=== PATIENT | male | born 1955 | race Caucasian/White ===

== ENCOUNTER → 2017-01-24 | Outpatient (CLI) | payer BC ==
[~2017-01-24] MED LIST: ACTOS30 MG PO; ALLOPURINOL300 MG PO; ASPIR 8181 MG PO; CINNAMON500 MG PO; CLOTRIMAZOLE/BETAMETHASONE 45 GM CR TP ONE; COQ-10100 MG PO; ESIDRIX25 MG PO; IRON PO; OMEGA OIL PO; RAMIPRIL5 MG PO; TESTOSTERONE; UROXATRAL10 MG PO; ZETIA10 MG PO
== END ==
LOC: WCC 11:59
PROVIDERS: ATTEND Podiatrist Foot & Ankle Surgery
DX: E11.65 Type 2 diabetes mellitus with hyperglycemia (principal); E11.621 Type 2 diabetes mellitus with foot ulcer; B37.2 Candidiasis of skin and nail; L97.522 Non-pressure chronic ulcer of other part of left foot with fat layer exposed; L97.521 Non-pressure chronic ulcer of other part of left foot limited to breakdown of skin; L97.512 Non-pressure chronic ulcer of other part of right foot with fat layer exposed; L97.511 Non-pressure chronic ulcer of other part of right foot limited to breakdown of skin; L97.519 Non-pressure chronic ulcer of other part of right foot with unspecified severity; B35.1 Tinea unguium; I89.0 Lymphedema, not elsewhere classified; I87.2 Venous insufficiency (chronic) (peripheral); L84 Corns and callosities; M10.9 Gout, unspecified; B96.5 Pseudomonas (aeruginosa) (mallei) (pseudomallei) as the cause of diseases classified elsewhere; B96.89 Other specified bacterial agents as the cause of diseases classified elsewhere; I10 Essential (primary) hypertension; E66.01 Morbid (severe) obesity due to excess calories; Z01.810 Encounter for preprocedural cardiovascular examination; Z01.811 Encounter for preprocedural respiratory examination
CPT/HCPCS: 36415; 82948

== ENCOUNTER → 2017-02-07 | Outpatient (CLI) | payer BC ==
[~2017-02-07] MED LIST changes: +LIDOCAINE VISC 2% SOLN 15 ML UDC ONE
== END ==
LOC: WCC 11:34
PROVIDERS: ATTEND Podiatrist Foot & Ankle Surgery
DX: E11.621 Type 2 diabetes mellitus with foot ulcer (principal); E11.65 Type 2 diabetes mellitus with hyperglycemia; B37.2 Candidiasis of skin and nail; L97.522 Non-pressure chronic ulcer of other part of left foot with fat layer exposed; L97.521 Non-pressure chronic ulcer of other part of left foot limited to breakdown of skin; L97.512 Non-pressure chronic ulcer of other part of right foot with fat layer exposed; L97.511 Non-pressure chronic ulcer of other part of right foot limited to breakdown of skin; L97.519 Non-pressure chronic ulcer of other part of right foot with unspecified severity; B35.1 Tinea unguium; I87.2 Venous insufficiency (chronic) (peripheral); I89.0 Lymphedema, not elsewhere classified; L84 Corns and callosities; M10.9 Gout, unspecified; B96.5 Pseudomonas (aeruginosa) (mallei) (pseudomallei) as the cause of diseases classified elsewhere; B96.89 Other specified bacterial agents as the cause of diseases classified elsewhere; I10 Essential (primary) hypertension; E66.01 Morbid (severe) obesity due to excess calories; Z01.810 Encounter for preprocedural cardiovascular examination; Z01.811 Encounter for preprocedural respiratory examination
CPT/HCPCS: 93971

== ENCOUNTER → 2017-02-21 | Outpatient (CLI) | payer BC ==
[~2017-02-21] MED LIST changes: -CLOTRIMAZOLE/BETAMETHASONE 45 GM CR TP ONE; -LIDOCAINE VISC 2% SOLN 15 ML UDC ONE
== END ==
LOC: WCC 11:52
PROVIDERS: ATTEND Podiatrist Foot & Ankle Surgery
DX: E11.65 Type 2 diabetes mellitus with hyperglycemia (principal); E11.621 Type 2 diabetes mellitus with foot ulcer; B37.2 Candidiasis of skin and nail; L97.512 Non-pressure chronic ulcer of other part of right foot with fat layer exposed; B35.1 Tinea unguium; B96.5 Pseudomonas (aeruginosa) (mallei) (pseudomallei) as the cause of diseases classified elsewhere; B96.89 Other specified bacterial agents as the cause of diseases classified elsewhere; L97.511 Non-pressure chronic ulcer of other part of right foot limited to breakdown of skin; L97.519 Non-pressure chronic ulcer of other part of right foot with unspecified severity; L97.521 Non-pressure chronic ulcer of other part of left foot limited to breakdown of skin; L97.522 Non-pressure chronic ulcer of other part of left foot with fat layer exposed; E66.01 Morbid (severe) obesity due to excess calories; I10 Essential (primary) hypertension; I87.2 Venous insufficiency (chronic) (peripheral); I87.311 Chronic venous hypertension (idiopathic) with ulcer of right lower extremity; L97.811 Non-pressure chronic ulcer of other part of right lower leg limited to breakdown of skin; I89.0 Lymphedema, not elsewhere classified; L84 Corns and callosities; M10.9 Gout, unspecified; M79.662 Pain in left lower leg; Z01.810 Encounter for preprocedural cardiovascular examination; Z01.811 Encounter for preprocedural respiratory examination

== ENCOUNTER → 2017-03-14 | Outpatient (CLI) | payer BC | LOC: WCC 12:22 | PROVIDERS: ATTEND Podiatrist Foot & Ankle Surgery | DX: E11.65 Type 2 diabetes mellitus with hyperglycemia (principal); E11.621 Type 2 diabetes mellitus with foot ulcer; L97.522 Non-pressure chronic ulcer of other part of left foot with fat layer exposed; L97.521 Non-pressure chronic ulcer of other part of left foot limited to breakdown of skin; L97.811 Non-pressure chronic ulcer of other part of right lower leg limited to breakdown of skin; L97.512 Non-pressure chronic ulcer of other part of right foot with fat layer exposed; L97.511 Non-pressure chronic ulcer of other part of right foot limited to breakdown of skin; L97.519 Non-pressure chronic ulcer of other part of right foot with unspecified severity; I87.311 Chronic venous hypertension (idiopathic) with ulcer of right lower extremity; I89.0 Lymphedema, not elsewhere classified; I87.2 Venous insufficiency (chronic) (peripheral); B37.2 Candidiasis of skin and nail; M79.662 Pain in left lower leg; B35.1 Tinea unguium; M10.9 Gout, unspecified; L84 Corns and callosities; B96.5 Pseudomonas (aeruginosa) (mallei) (pseudomallei) as the cause of diseases classified elsewhere; B96.89 Other specified bacterial agents as the cause of diseases classified elsewhere; I10 Essential (primary) hypertension; E66.01 Morbid (severe) obesity due to excess calories; Z01.810 Encounter for preprocedural cardiovascular examination; Z01.811 Encounter for preprocedural respiratory examination | CPT/HCPCS: 87071; 87075; 87186; 87205 ==

== ENCOUNTER → 2017-03-21 | Outpatient (CLI) | payer BC | LOC: WCC 11:43 | PROVIDERS: ATTEND Podiatrist Foot & Ankle Surgery | DX: E11.621 Type 2 diabetes mellitus with foot ulcer (principal); E11.65 Type 2 diabetes mellitus with hyperglycemia; L97.522 Non-pressure chronic ulcer of other part of left foot with fat layer exposed; L97.521 Non-pressure chronic ulcer of other part of left foot limited to breakdown of skin; L97.811 Non-pressure chronic ulcer of other part of right lower leg limited to breakdown of skin; L97.512 Non-pressure chronic ulcer of other part of right foot with fat layer exposed; L97.511 Non-pressure chronic ulcer of other part of right foot limited to breakdown of skin; L97.519 Non-pressure chronic ulcer of other part of right foot with unspecified severity; I87.311 Chronic venous hypertension (idiopathic) with ulcer of right lower extremity; I89.0 Lymphedema, not elsewhere classified; I87.2 Venous insufficiency (chronic) (peripheral); M10.9 Gout, unspecified; L84 Corns and callosities; B35.1 Tinea unguium; B95.7 Other staphylococcus as the cause of diseases classified elsewhere; B96.89 Other specified bacterial agents as the cause of diseases classified elsewhere; B96.5 Pseudomonas (aeruginosa) (mallei) (pseudomallei) as the cause of diseases classified elsewhere; I10 Essential (primary) hypertension; E66.01 Morbid (severe) obesity due to excess calories; Z01.810 Encounter for preprocedural cardiovascular examination; Z01.811 Encounter for preprocedural respiratory examination ==

== ENCOUNTER → 2017-03-28 | Outpatient (CLI) | payer BC ==
[~2017-03-28] MED LIST changes: +CLOTRIMAZOLE/BETAMETHASONE 45 GM CR TP ONE; +LIDOCAINE VISC 2% SOLN 15 ML UDC ONE
== END ==
LOC: WCC 12:22
PROVIDERS: ATTEND Podiatrist Foot & Ankle Surgery
DX: E11.621 Type 2 diabetes mellitus with foot ulcer (principal); E11.65 Type 2 diabetes mellitus with hyperglycemia; B95.7 Other staphylococcus as the cause of diseases classified elsewhere; B96.89 Other specified bacterial agents as the cause of diseases classified elsewhere; L97.512 Non-pressure chronic ulcer of other part of right foot with fat layer exposed; B35.1 Tinea unguium; B96.5 Pseudomonas (aeruginosa) (mallei) (pseudomallei) as the cause of diseases classified elsewhere; L97.511 Non-pressure chronic ulcer of other part of right foot limited to breakdown of skin; L97.519 Non-pressure chronic ulcer of other part of right foot with unspecified severity; L97.522 Non-pressure chronic ulcer of other part of left foot with fat layer exposed; E66.01 Morbid (severe) obesity due to excess calories; I10 Essential (primary) hypertension; I87.2 Venous insufficiency (chronic) (peripheral); I89.0 Lymphedema, not elsewhere classified; L84 Corns and callosities; M10.9 Gout, unspecified; Z01.810 Encounter for preprocedural cardiovascular examination; Z01.811 Encounter for preprocedural respiratory examination

== ENCOUNTER → 2017-04-04 | Outpatient (CLI) | payer BC ==
[~2017-04-04] MED LIST changes: -CLOTRIMAZOLE/BETAMETHASONE 45 GM CR TP ONE
== END ==
LOC: EDSTATUS 11:57 → WCC 11:59
PROVIDERS: ATTEND Podiatrist Foot & Ankle Surgery
DX: E11.65 Type 2 diabetes mellitus with hyperglycemia (principal); E11.621 Type 2 diabetes mellitus with foot ulcer; L97.522 Non-pressure chronic ulcer of other part of left foot with fat layer exposed; L97.512 Non-pressure chronic ulcer of other part of right foot with fat layer exposed; L97.511 Non-pressure chronic ulcer of other part of right foot limited to breakdown of skin; L97.519 Non-pressure chronic ulcer of other part of right foot with unspecified severity; I89.0 Lymphedema, not elsewhere classified; I87.2 Venous insufficiency (chronic) (peripheral); M10.9 Gout, unspecified; B35.1 Tinea unguium; L84 Corns and callosities; B95.7 Other staphylococcus as the cause of diseases classified elsewhere; B96.5 Pseudomonas (aeruginosa) (mallei) (pseudomallei) as the cause of diseases classified elsewhere; B96.89 Other specified bacterial agents as the cause of diseases classified elsewhere; I10 Essential (primary) hypertension; E66.01 Morbid (severe) obesity due to excess calories; Z01.810 Encounter for preprocedural cardiovascular examination; Z01.811 Encounter for preprocedural respiratory examination
CPT/HCPCS: 15275; 99213; Q4131

== ENCOUNTER → 2017-04-11 | Outpatient (CLI) | payer BC ==
[~2017-04-11] MED LIST changes: -LIDOCAINE VISC 2% SOLN 15 ML UDC ONE
== END ==
LOC: WCC 12:24
PROVIDERS: ATTEND Podiatrist Foot & Ankle Surgery
DX: E11.621 Type 2 diabetes mellitus with foot ulcer (principal); E11.65 Type 2 diabetes mellitus with hyperglycemia; L97.522 Non-pressure chronic ulcer of other part of left foot with fat layer exposed; L97.512 Non-pressure chronic ulcer of other part of right foot with fat layer exposed; L97.511 Non-pressure chronic ulcer of other part of right foot limited to breakdown of skin; L97.519 Non-pressure chronic ulcer of other part of right foot with unspecified severity; I89.0 Lymphedema, not elsewhere classified; I87.2 Venous insufficiency (chronic) (peripheral); B35.1 Tinea unguium; M10.9 Gout, unspecified; L84 Corns and callosities; I10 Essential (primary) hypertension; B96.5 Pseudomonas (aeruginosa) (mallei) (pseudomallei) as the cause of diseases classified elsewhere; B96.89 Other specified bacterial agents as the cause of diseases classified elsewhere; E66.01 Morbid (severe) obesity due to excess calories; Z01.810 Encounter for preprocedural cardiovascular examination; Z01.811 Encounter for preprocedural respiratory examination

== ENCOUNTER → 2017-04-18 | Outpatient (CLI) | payer BC | LOC: WCC 12:00 | PROVIDERS: ATTEND Podiatrist Foot & Ankle Surgery | DX: E11.621 Type 2 diabetes mellitus with foot ulcer (principal); E11.65 Type 2 diabetes mellitus with hyperglycemia; L97.522 Non-pressure chronic ulcer of other part of left foot with fat layer exposed; L97.512 Non-pressure chronic ulcer of other part of right foot with fat layer exposed; L97.511 Non-pressure chronic ulcer of other part of right foot limited to breakdown of skin; L97.519 Non-pressure chronic ulcer of other part of right foot with unspecified severity; B35.1 Tinea unguium; I89.0 Lymphedema, not elsewhere classified; B96.5 Pseudomonas (aeruginosa) (mallei) (pseudomallei) as the cause of diseases classified elsewhere; B96.89 Other specified bacterial agents as the cause of diseases classified elsewhere; I10 Essential (primary) hypertension; I87.2 Venous insufficiency (chronic) (peripheral); E66.01 Morbid (severe) obesity due to excess calories; E78.00 Pure hypercholesterolemia, unspecified; L84 Corns and callosities; M10.9 Gout, unspecified; Z01.810 Encounter for preprocedural cardiovascular examination; Z01.811 Encounter for preprocedural respiratory examination | CPT/HCPCS: 15275; 99213; Q4131 ==

== ENCOUNTER → 2017-04-25 | Outpatient (CLI) | payer BC | LOC: WCC 12:29 | PROVIDERS: ATTEND Podiatrist Foot & Ankle Surgery | DX: E11.621 Type 2 diabetes mellitus with foot ulcer (principal); E11.65 Type 2 diabetes mellitus with hyperglycemia; L97.512 Non-pressure chronic ulcer of other part of right foot with fat layer exposed; L97.519 Non-pressure chronic ulcer of other part of right foot with unspecified severity; L97.511 Non-pressure chronic ulcer of other part of right foot limited to breakdown of skin; B35.1 Tinea unguium; B96.5 Pseudomonas (aeruginosa) (mallei) (pseudomallei) as the cause of diseases classified elsewhere; B96.89 Other specified bacterial agents as the cause of diseases classified elsewhere; I89.0 Lymphedema, not elsewhere classified; I87.2 Venous insufficiency (chronic) (peripheral); M10.9 Gout, unspecified; L84 Corns and callosities; E66.01 Morbid (severe) obesity due to excess calories; I10 Essential (primary) hypertension; E78.00 Pure hypercholesterolemia, unspecified; Z01.810 Encounter for preprocedural cardiovascular examination; Z01.811 Encounter for preprocedural respiratory examination | CPT/HCPCS: 15275; Q4133 ==

== ENCOUNTER → 2017-05-02 | Outpatient (CLI) | payer BC | LOC: WCC 12:13 | PROVIDERS: ATTEND Podiatrist Foot & Ankle Surgery | DX: E11.621 Type 2 diabetes mellitus with foot ulcer (principal); E11.65 Type 2 diabetes mellitus with hyperglycemia; L97.512 Non-pressure chronic ulcer of other part of right foot with fat layer exposed; L97.511 Non-pressure chronic ulcer of other part of right foot limited to breakdown of skin; L97.519 Non-pressure chronic ulcer of other part of right foot with unspecified severity; I87.2 Venous insufficiency (chronic) (peripheral); I89.0 Lymphedema, not elsewhere classified; L84 Corns and callosities; M10.9 Gout, unspecified; B35.1 Tinea unguium; B96.5 Pseudomonas (aeruginosa) (mallei) (pseudomallei) as the cause of diseases classified elsewhere; B96.89 Other specified bacterial agents as the cause of diseases classified elsewhere; I10 Essential (primary) hypertension; E66.01 Morbid (severe) obesity due to excess calories; E78.00 Pure hypercholesterolemia, unspecified; Z01.810 Encounter for preprocedural cardiovascular examination; Z01.811 Encounter for preprocedural respiratory examination ==

== ENCOUNTER → 2017-05-16 | Outpatient (CLI) | payer BC | LOC: WCC 11:50 | PROVIDERS: ATTEND Podiatrist Foot & Ankle Surgery | DX: E11.621 Type 2 diabetes mellitus with foot ulcer (principal); E11.65 Type 2 diabetes mellitus with hyperglycemia; L97.512 Non-pressure chronic ulcer of other part of right foot with fat layer exposed; I87.2 Venous insufficiency (chronic) (peripheral); I89.0 Lymphedema, not elsewhere classified; I10 Essential (primary) hypertension; B35.1 Tinea unguium; M10.9 Gout, unspecified; L84 Corns and callosities; E66.01 Morbid (severe) obesity due to excess calories; E78.00 Pure hypercholesterolemia, unspecified; Z01.810 Encounter for preprocedural cardiovascular examination; Z01.811 Encounter for preprocedural respiratory examination | CPT/HCPCS: 15275; Q4131 ==

== ENCOUNTER → 2017-05-23 | Outpatient (CLI) | payer BC | LOC: WCC 11:41 | PROVIDERS: ATTEND Podiatrist Foot & Ankle Surgery | DX: E11.621 Type 2 diabetes mellitus with foot ulcer (principal); E11.65 Type 2 diabetes mellitus with hyperglycemia; L97.512 Non-pressure chronic ulcer of other part of right foot with fat layer exposed; M10.9 Gout, unspecified; I87.2 Venous insufficiency (chronic) (peripheral); I89.0 Lymphedema, not elsewhere classified; B35.1 Tinea unguium; L84 Corns and callosities; I10 Essential (primary) hypertension; E66.01 Morbid (severe) obesity due to excess calories; Z01.810 Encounter for preprocedural cardiovascular examination; Z01.811 Encounter for preprocedural respiratory examination ==

== ENCOUNTER → 2017-05-30 | Outpatient (CLI) | payer BC ==
[~2017-05-30] MED LIST changes: +CLOTRIMAZOLE/BETAMETHASONE 45 GM CR TP ONE
== END ==
LOC: WCC 12:39
PROVIDERS: ATTEND Podiatrist Foot & Ankle Surgery
DX: E11.621 Type 2 diabetes mellitus with foot ulcer (principal); E11.65 Type 2 diabetes mellitus with hyperglycemia; L97.512 Non-pressure chronic ulcer of other part of right foot with fat layer exposed; I87.2 Venous insufficiency (chronic) (peripheral); I89.0 Lymphedema, not elsewhere classified; L84 Corns and callosities; B35.1 Tinea unguium; M10.9 Gout, unspecified; I10 Essential (primary) hypertension; E66.01 Morbid (severe) obesity due to excess calories; E78.00 Pure hypercholesterolemia, unspecified; Z01.810 Encounter for preprocedural cardiovascular examination
CPT/HCPCS: 87071; 87075; 87186; 87205

== ENCOUNTER → 2017-06-06 | Outpatient (CLI) | payer BC ==
[~2017-06-06] MED LIST changes: -CLOTRIMAZOLE/BETAMETHASONE 45 GM CR TP ONE; +LIDOCAINE VISC 2% SOLN 15 ML UDC ONE
== END ==
LOC: WCC 11:46
PROVIDERS: ATTEND Podiatrist Foot & Ankle Surgery
DX: E11.621 Type 2 diabetes mellitus with foot ulcer (principal); E11.65 Type 2 diabetes mellitus with hyperglycemia; L97.512 Non-pressure chronic ulcer of other part of right foot with fat layer exposed; I89.0 Lymphedema, not elsewhere classified; I87.2 Venous insufficiency (chronic) (peripheral); B35.1 Tinea unguium; L84 Corns and callosities; M10.9 Gout, unspecified; I10 Essential (primary) hypertension; E66.01 Morbid (severe) obesity due to excess calories; E78.00 Pure hypercholesterolemia, unspecified; Z01.810 Encounter for preprocedural cardiovascular examination; Z01.811 Encounter for preprocedural respiratory examination

== ENCOUNTER → 2017-06-13 | Outpatient (CLI) | payer BC | LOC: WCC 11:49 | PROVIDERS: ATTEND Podiatrist Foot & Ankle Surgery | DX: E11.621 Type 2 diabetes mellitus with foot ulcer (principal); E11.65 Type 2 diabetes mellitus with hyperglycemia; L97.512 Non-pressure chronic ulcer of other part of right foot with fat layer exposed; I87.2 Venous insufficiency (chronic) (peripheral); I89.0 Lymphedema, not elsewhere classified; M10.9 Gout, unspecified; B35.1 Tinea unguium; L84 Corns and callosities; E66.01 Morbid (severe) obesity due to excess calories; E78.00 Pure hypercholesterolemia, unspecified; I10 Essential (primary) hypertension; Z01.810 Encounter for preprocedural cardiovascular examination; Z01.811 Encounter for preprocedural respiratory examination ==

== ENCOUNTER → 2017-06-20 | Outpatient (CLI) | payer BC ==
[~2017-06-20] MED LIST changes: -LIDOCAINE VISC 2% SOLN 15 ML UDC ONE
== END ==
LOC: WCC 12:11
PROVIDERS: ATTEND Podiatrist Foot & Ankle Surgery
DX: E11.621 Type 2 diabetes mellitus with foot ulcer (principal); E11.65 Type 2 diabetes mellitus with hyperglycemia; L97.512 Non-pressure chronic ulcer of other part of right foot with fat layer exposed; I87.2 Venous insufficiency (chronic) (peripheral); I89.0 Lymphedema, not elsewhere classified; B35.1 Tinea unguium; M10.9 Gout, unspecified; L84 Corns and callosities; I10 Essential (primary) hypertension; E78.00 Pure hypercholesterolemia, unspecified; E66.01 Morbid (severe) obesity due to excess calories; Z01.810 Encounter for preprocedural cardiovascular examination; Z01.811 Encounter for preprocedural respiratory examination

== ENCOUNTER → 2017-06-27 | Outpatient (CLI) | payer BC | LOC: WCC 12:03 | PROVIDERS: ATTEND Podiatrist Foot & Ankle Surgery | DX: E11.621 Type 2 diabetes mellitus with foot ulcer (principal); E11.65 Type 2 diabetes mellitus with hyperglycemia; L97.512 Non-pressure chronic ulcer of other part of right foot with fat layer exposed; M10.9 Gout, unspecified; B35.1 Tinea unguium; L84 Corns and callosities; I89.0 Lymphedema, not elsewhere classified; I87.2 Venous insufficiency (chronic) (peripheral); I10 Essential (primary) hypertension; E66.01 Morbid (severe) obesity due to excess calories; E78.00 Pure hypercholesterolemia, unspecified; Z01.810 Encounter for preprocedural cardiovascular examination; Z01.811 Encounter for preprocedural respiratory examination ==

== ENCOUNTER → 2017-07-04 | Outpatient (CLI) | payer BC | LOC: WCC 12:09 | PROVIDERS: ATTEND Podiatrist Foot & Ankle Surgery | DX: E11.621 Type 2 diabetes mellitus with foot ulcer (principal); E11.65 Type 2 diabetes mellitus with hyperglycemia; L97.512 Non-pressure chronic ulcer of other part of right foot with fat layer exposed; I87.2 Venous insufficiency (chronic) (peripheral); I89.0 Lymphedema, not elsewhere classified; M10.9 Gout, unspecified; B35.1 Tinea unguium; L84 Corns and callosities; I10 Essential (primary) hypertension; E78.00 Pure hypercholesterolemia, unspecified; E66.01 Morbid (severe) obesity due to excess calories; Z01.810 Encounter for preprocedural cardiovascular examination; Z01.811 Encounter for preprocedural respiratory examination ==

== ENCOUNTER → 2017-07-18 | Outpatient (CLI) | payer BC | LOC: WCC 12:03 | PROVIDERS: ATTEND Podiatrist Foot & Ankle Surgery | DX: E11.621 Type 2 diabetes mellitus with foot ulcer (principal); E11.65 Type 2 diabetes mellitus with hyperglycemia; L97.512 Non-pressure chronic ulcer of other part of right foot with fat layer exposed; I87.2 Venous insufficiency (chronic) (peripheral); I89.0 Lymphedema, not elsewhere classified; B35.1 Tinea unguium; L84 Corns and callosities; M10.9 Gout, unspecified; I10 Essential (primary) hypertension; E66.01 Morbid (severe) obesity due to excess calories; E78.00 Pure hypercholesterolemia, unspecified; Z01.810 Encounter for preprocedural cardiovascular examination; Z01.811 Encounter for preprocedural respiratory examination ==

== ENCOUNTER → 2017-07-25 | Outpatient (CLI) | payer BC | LOC: WCC 08:10 | PROVIDERS: ATTEND Podiatrist Foot & Ankle Surgery | DX: E11.65 Type 2 diabetes mellitus with hyperglycemia (principal); E11.621 Type 2 diabetes mellitus with foot ulcer; L97.512 Non-pressure chronic ulcer of other part of right foot with fat layer exposed; I87.2 Venous insufficiency (chronic) (peripheral); I89.0 Lymphedema, not elsewhere classified; B35.1 Tinea unguium; L84 Corns and callosities; M10.9 Gout, unspecified; I10 Essential (primary) hypertension; E66.01 Morbid (severe) obesity due to excess calories; E78.00 Pure hypercholesterolemia, unspecified; Z01.810 Encounter for preprocedural cardiovascular examination; Z01.811 Encounter for preprocedural respiratory examination ==

== ENCOUNTER → 2017-08-01 | Outpatient (CLI) | payer BC | LOC: WCC 12:01 | PROVIDERS: ATTEND Podiatrist Foot & Ankle Surgery | DX: E11.621 Type 2 diabetes mellitus with foot ulcer (principal); E11.65 Type 2 diabetes mellitus with hyperglycemia; L97.512 Non-pressure chronic ulcer of other part of right foot with fat layer exposed; I87.2 Venous insufficiency (chronic) (peripheral); I89.0 Lymphedema, not elsewhere classified; B35.1 Tinea unguium; L84 Corns and callosities; M10.9 Gout, unspecified; I10 Essential (primary) hypertension; E78.00 Pure hypercholesterolemia, unspecified; E66.01 Morbid (severe) obesity due to excess calories; Z01.810 Encounter for preprocedural cardiovascular examination; Z01.811 Encounter for preprocedural respiratory examination ==

== ENCOUNTER → 2017-08-08 | Outpatient (CLI) | payer BC | LOC: WCC 14:40 | PROVIDERS: ATTEND Podiatrist Foot & Ankle Surgery | DX: E11.621 Type 2 diabetes mellitus with foot ulcer (principal); E11.65 Type 2 diabetes mellitus with hyperglycemia; L97.512 Non-pressure chronic ulcer of other part of right foot with fat layer exposed; I10 Essential (primary) hypertension; I89.0 Lymphedema, not elsewhere classified; I87.2 Venous insufficiency (chronic) (peripheral); L84 Corns and callosities; M10.9 Gout, unspecified; B35.1 Tinea unguium; E66.01 Morbid (severe) obesity due to excess calories; E78.00 Pure hypercholesterolemia, unspecified; Z01.810 Encounter for preprocedural cardiovascular examination; Z01.811 Encounter for preprocedural respiratory examination ==

== ENCOUNTER → 2017-08-24 | Outpatient (CLI) | payer BC | LOC: WCC 13:37 | PROVIDERS: ATTEND Podiatrist Foot & Ankle Surgery | DX: E11.621 Type 2 diabetes mellitus with foot ulcer (principal); E11.65 Type 2 diabetes mellitus with hyperglycemia; L97.512 Non-pressure chronic ulcer of other part of right foot with fat layer exposed; I89.0 Lymphedema, not elsewhere classified; I87.2 Venous insufficiency (chronic) (peripheral); B35.1 Tinea unguium; L84 Corns and callosities; M10.9 Gout, unspecified; I10 Essential (primary) hypertension; E78.00 Pure hypercholesterolemia, unspecified; E66.01 Morbid (severe) obesity due to excess calories; Z01.810 Encounter for preprocedural cardiovascular examination; Z01.811 Encounter for preprocedural respiratory examination ==

== ENCOUNTER → 2017-09-05 | Outpatient (CLI) | payer BC | LOC: WCC 14:33 | PROVIDERS: ATTEND Podiatrist Foot & Ankle Surgery | DX: E11.621 Type 2 diabetes mellitus with foot ulcer (principal); E11.65 Type 2 diabetes mellitus with hyperglycemia; L97.512 Non-pressure chronic ulcer of other part of right foot with fat layer exposed; I89.0 Lymphedema, not elsewhere classified; I87.2 Venous insufficiency (chronic) (peripheral); B35.1 Tinea unguium; M10.9 Gout, unspecified; L84 Corns and callosities; I10 Essential (primary) hypertension; E66.01 Morbid (severe) obesity due to excess calories; E78.00 Pure hypercholesterolemia, unspecified; Z01.810 Encounter for preprocedural cardiovascular examination; Z01.811 Encounter for preprocedural respiratory examination ==

== ENCOUNTER → 2017-09-12 | Outpatient (CLI) | payer BC | LOC: WCC 15:18 | PROVIDERS: ATTEND Podiatrist Foot & Ankle Surgery | DX: E11.65 Type 2 diabetes mellitus with hyperglycemia (principal); E11.621 Type 2 diabetes mellitus with foot ulcer; L97.512 Non-pressure chronic ulcer of other part of right foot with fat layer exposed; I89.0 Lymphedema, not elsewhere classified; I87.2 Venous insufficiency (chronic) (peripheral); M10.9 Gout, unspecified; B35.1 Tinea unguium; L84 Corns and callosities; I10 Essential (primary) hypertension; E78.00 Pure hypercholesterolemia, unspecified; E66.01 Morbid (severe) obesity due to excess calories; Z01.810 Encounter for preprocedural cardiovascular examination; Z01.811 Encounter for preprocedural respiratory examination ==

== ENCOUNTER → 2017-09-19 | Outpatient (CLI) | payer BC | LOC: WCC 16:36 | PROVIDERS: ATTEND Podiatrist Foot & Ankle Surgery | DX: E11.621 Type 2 diabetes mellitus with foot ulcer (principal); E11.65 Type 2 diabetes mellitus with hyperglycemia; L97.512 Non-pressure chronic ulcer of other part of right foot with fat layer exposed; I87.2 Venous insufficiency (chronic) (peripheral); I89.0 Lymphedema, not elsewhere classified; M10.9 Gout, unspecified; B35.1 Tinea unguium; L84 Corns and callosities; I10 Essential (primary) hypertension; E78.00 Pure hypercholesterolemia, unspecified; E66.01 Morbid (severe) obesity due to excess calories; Z01.810 Encounter for preprocedural cardiovascular examination; Z01.811 Encounter for preprocedural respiratory examination ==

== ENCOUNTER → 2017-10-03 | Outpatient (CLI) | payer BC | LOC: WCC 16:43 | PROVIDERS: ATTEND Podiatrist Foot & Ankle Surgery | DX: E11.621 Type 2 diabetes mellitus with foot ulcer (principal); E11.65 Type 2 diabetes mellitus with hyperglycemia; L97.512 Non-pressure chronic ulcer of other part of right foot with fat layer exposed; I87.2 Venous insufficiency (chronic) (peripheral); I89.0 Lymphedema, not elsewhere classified; B35.1 Tinea unguium; L84 Corns and callosities; M10.9 Gout, unspecified; I10 Essential (primary) hypertension; E78.00 Pure hypercholesterolemia, unspecified; E66.01 Morbid (severe) obesity due to excess calories; Z01.810 Encounter for preprocedural cardiovascular examination; Z01.811 Encounter for preprocedural respiratory examination ==

== ENCOUNTER → 2017-10-10 | Outpatient (CLI) | payer BC | LOC: WCC 12:11 | PROVIDERS: ATTEND Family Medicine Adult Medicine | DX: E11.65 Type 2 diabetes mellitus with hyperglycemia (principal); E11.621 Type 2 diabetes mellitus with foot ulcer; L97.512 Non-pressure chronic ulcer of other part of right foot with fat layer exposed; I87.2 Venous insufficiency (chronic) (peripheral); I89.0 Lymphedema, not elsewhere classified; M10.9 Gout, unspecified; B35.1 Tinea unguium; L84 Corns and callosities; I10 Essential (primary) hypertension; E78.00 Pure hypercholesterolemia, unspecified; E66.01 Morbid (severe) obesity due to excess calories; Z01.810 Encounter for preprocedural cardiovascular examination; Z01.811 Encounter for preprocedural respiratory examination ==

== ENCOUNTER → 2017-11-28 | Outpatient (CLI) | payer BC | LOC: WCC 13:24 | PROVIDERS: ATTEND Podiatrist Foot & Ankle Surgery | DX: E11.621 Type 2 diabetes mellitus with foot ulcer (principal); E11.65 Type 2 diabetes mellitus with hyperglycemia; L97.512 Non-pressure chronic ulcer of other part of right foot with fat layer exposed; I87.2 Venous insufficiency (chronic) (peripheral); I89.0 Lymphedema, not elsewhere classified; M10.9 Gout, unspecified; B35.1 Tinea unguium; L84 Corns and callosities; I10 Essential (primary) hypertension; E78.00 Pure hypercholesterolemia, unspecified; E66.01 Morbid (severe) obesity due to excess calories; Z01.810 Encounter for preprocedural cardiovascular examination; Z01.811 Encounter for preprocedural respiratory examination ==

== ENCOUNTER → 2017-12-26 | Outpatient (CLI) | payer BC | LOC: WCC 12:50 | PROVIDERS: ATTEND Podiatrist Foot & Ankle Surgery | DX: E11.621 Type 2 diabetes mellitus with foot ulcer (principal); E11.65 Type 2 diabetes mellitus with hyperglycemia; L97.512 Non-pressure chronic ulcer of other part of right foot with fat layer exposed; I87.2 Venous insufficiency (chronic) (peripheral); I89.0 Lymphedema, not elsewhere classified; B35.1 Tinea unguium; M10.9 Gout, unspecified; L84 Corns and callosities; I10 Essential (primary) hypertension; E66.01 Morbid (severe) obesity due to excess calories; E78.00 Pure hypercholesterolemia, unspecified; Z01.810 Encounter for preprocedural cardiovascular examination; Z01.811 Encounter for preprocedural respiratory examination ==

== ENCOUNTER → 2018-01-28 | Outpatient (CLI) | payer BC ==
--- NOTE | 2018-01-28 08:27 | Diagnostic Imaging Report ---
PROCEDURE: CT ABDOMEN AND PELVIS WITHOUT CONTRAST TECHNIQUE: The abdomen and pelvis were scanned utilizing a multidetector helical scanner from the diaphragm to the lesser trochanter without IV or oral contrast material per renal stone protocol. Coronal and sagittal multiplanar reformations were obtained. Low-dose technique was utilized. COMPARISON: [facility], CT, CT ABDOMEN/PELVIS WO, 09/12/2016, 12:27. INDICATIONS: RENAL STONES DLP: 1287.16 FINDINGS: ABSENCE OF INTRAVENOUS CONTRAST DECREASES SENSITIVITY FOR DETECTION OF FOCAL LESIONS AND VASCULAR PATHOLOGY. LOWER THORAX: Unchanged pleural based nodule in the left lower lobe. HEPATOBILIARY: No focal hepatic lesions. No biliary ductal dilatation. Status post cholecystectomy. SPLEEN: No splenomegaly. PANCREAS: No focal masses or ductal dilatation. ADRENALS: No adrenal nodules. KIDNEYS/URETERS: No hydronephrosis or solid mass lesions. A 6.2 mm left interpolar renal stone is slightly larger and a 4.4 mm inferior pole stone appearing unchanged.. PELVIC ORGANS/BLADDER: Unremarkable. PERITONEUM / RETROPERITONEUM: Ventral hernia containing loops of transverse colon is unchanged. LYMPH NODES: Unchanged iliac lymph node chain prominence. VESSELS: Scattered vascular calcification. GI TRACT: No distention or wall thickening. Diverticulosis without evidence of diverticulitis. BONES AND SOFT TISSUES: Mild degenerative changes of the spine. Anterior listhesis of L4 on L5 is unchanged. IMPRESSION: 1. There are two nonobstructing left renal stones. 2. Unchanged ventral hernia containing loops of large bowel Leroy Dee D.O. Dictated by: Leroy Dee D.O. on 01/28/2018 at 8:37 Electronically approved by: Leroy Dee D.O. on 01/28/2018 at 8:37
== END ==
LOC: CT 07:22
PROVIDERS: ATTEND Urology
DX: N20.0 Calculus of kidney (principal)
CPT/HCPCS: 74176

== ENCOUNTER → 2018-10-03 | Outpatient (CLI) | payer MEDICARE, OTHER ==
--- NOTE | 2018-10-03 08:44 | Diagnostic Imaging Report ---
CT of the abdomen and pelvis, without contrast, 10/03/2018. History: Renal calculus. Comparison: None available. Technique: Multidetector CT scanning of the abdomen and pelvis was performed from the level of the lung bases to the inferior pubic rami without intravenous or oral contrast. Coronal and sagittal multiplanar reformations were obtained. RADIATION DOSE: Total DLP: 1194 mGy*cm Dose modulation, iterative reconstruction, and/or weight based adjustment of the mA/kV was utilized to reduce the radiation dose to as low as reasonably achievable. Discussion: Examination is limited without contrast. Lung bases: No visualized abnormalities. Abdomen: 2 stones are present within the left kidney measuring 4 and 7 mm in diameter. There is no evidence of hydronephrosis or perinephric fat stranding. No evidence of nephrolithiasis or hydronephrosis on the right. The ureters are nondilated. The liver, biliary tree, spleen, pancreas, and adrenal glands are unremarkable. Cholecystectomy clips are present. The abdominal aorta is within normal limits. There is no bowel dilatation. Scattered colonic diverticuli are present without evidence of adjacent inflammation. There is no evidence of adenopathy or free fluid. A large umbilical hernia is present containing mesenteric fat and a portion of the transverse colon. There is no evidence of bowel wall thickening or proximal bowel dilatation. Pelvis: The bladder, prostate, seminal vesicles are unremarkable. There is no evidence of free fluid or adenopathy. Bones and soft tissues: Degenerative changes are present throughout the lumbar spine without evidence of lytic or sclerotic lesion. IMPRESSION: 1. 2 small nonobstructing left renal calculi. 2. Large umbilical hernia containing portion of the transverse colon without evidence of strangulation or obstruction. 3. Colonic diverticulosis without evidence of diverticulitis. 4. Status post cholecystectomy. Otherwise unremarkable noncontrast exam. Signed by: Chan Meehan on 10/03/2018 8:40 AM
== END ==
LOC: CT 07:39
PROVIDERS: ATTEND Urology
DX: N20.0 Calculus of kidney (principal)
CPT/HCPCS: 74176

== ENCOUNTER 2019-11-28 12:05 | Inpatient (IN) | payer MEDICARE, OTHER ==
[~2019-11-28] VITALS: Ht 185.4 cm; Wt 181.4 kg
[2019-11-28] MEDS ORDERED: SODIUM BICARBONATE 8.4% INJ 50 ML SYR ONE (12:22)
[2019-11-28] MEDS ORDERED: SODIUM CHLORIDE 0.9% 1000 ML BAG ONE (12:22)
[2019-11-28] MEDS ORDERED: EPINEPHRINE HCL SYRINGE ONE (12:22)
[2019-11-28] MEDS ORDERED: DOPAmine/D5W 1.6 MG/ML 400 MG/250ML PREMIX IV ONE (12:22)
--- OUTSIDE RECORDS SUMMARY | 2019-11-28 13:49 | XMS REPORT | Continuity of Care Document ---
Author Author [facility] t Organization [facility] Address [address] [place] [address] Dr. Roberson [address] [place] [phone] Phone Unavailable Care Team Providers Care Gas Pumper Name Role Phone FABRICIO HARRISON Unavailable Problems This patient has no known problems. Allergies, Adverse Reactions, Alerts This patient has no known allergies or adverse reactions. Medications This patient has no known medications. Procedures This patient has no known procedures. Results Test Description Test Time Test Comments Results Result Comments Source CT ABDOMEN/PELVIS WO 2018-10-03 08:36:00 [place] [address] Patient Name: HARIS ALMAZAN MR #: [id number] : 1955 Age/Sex: 63/M Req #: [id number] Adm Physician: Ordered by: FABRICIO HARRISON MD Report #: [id number] Location: CT Room/Bed: Procedure: [id number] CT/CT ABDOMEN/PELVIS WO Exam Date: 10/03/18 Exam Time: 814 REPORT STATUS: Signed CT of the abdomen and pelvis, without contrast, 10/03/2018. History: Renal calculus. Comparison: None available. Technique: Multidetector CT scanning of the abdomen and pelvis was performed from the level of the lung bases to the inferior pubic rami without intravenous or oral contrast. Coronal and sagittal multiplanar reformations were obtained. RADIATION DOSE: Total DLP: 1194 mGy*cm Dose modulation, iterative reconstruction, and/or weight based adjustment of the mA/kV was utilized to reduce the radiation dose to as low as reasonably achievable. Discussion: Examination is limited without contrast. Lung bases: No visualized abnormalities. Abdomen: 2 stones are present within the left kidney measuring 4 and 7 mm in diameter. There is no evidence of hydronephrosis or perinephric fat stranding. No evidence of nephrolithiasis or hydronephrosis on the right. The ureters are nondilated. The liver, biliary tree, spleen, pancreas, and adrenal glands are unremarkable. Cholecystectomy clips are present. The abdominal aorta is within normal limits. There is no bowel dilatation. Scattered colonic diverticuli are present without evidence of adjacent inflammation. There is no evidence of adenopathy or free fluid. A large umbilical hernia is present containing mesenteric fat and a portion of the transverse colon. There is no evidence of bowel wall thickening or proximal bowel dilatation. Pelvis: The bladder, prostate, seminal vesicles are unremarkable. There is no evidence of free fluid or adenopathy. Bones and soft tissues: Degenerative changes are present throughout the lumbar spine without evidence of lytic or sclerotic lesion. IMPRESSION: 1. 2 small nonobstructing left renal calculi. 2. Large umbilical hernia containing portion of the transverse colon without evidence of strangulation or obstruction. 3. Colonic diverticulosis without evidence of diverticulitis. 4. Status post cholecystectomy. Otherwise unremarkable noncontrast exam. Signed by: Lorrie Meehan on 10/03/2018 8:40 AM Dictated By: LORRIE MEEHAN MD 9 Transcribed By: LESLI on 10/03/18839 COPY TO: FABRICIO HARRISON MD CT ABDOMEN/PELVIS WO 2018-01-28 08:37:00 [place] [address] Patient Name: HARIS ALMAZAN MR #: [id number] : 1955 Age/Sex: 62/M Req #: [id number] Adm Physician: Ordered by: FABRICIO HARRISON MD Report #: [id number] Location: CT Room/Bed: Procedure: [id number] CT/CT ABDOMEN/PELVIS WO Exam Date: 01/28/18 Exam Time: 0740 REPORT STATUS: Signed PROCEDURE: CT ABDOMEN AND PELVIS WITHOUT CONTRAST TECHNIQUE: The abdomen and pelvis were scanned utilizing a multidetector helical scanner from the diaphragm to the lesser trochanter without IV or oral contrast material per renal stone protocol. Coronal and sagittal multiplanar reformations were obtained. Low-dose technique was utilized. COMPARISON: [facility], CT, CT ABDOMEN/PELVIS WO, 09/12/2016, 12:27. INDICATIONS: RENAL STONES DLP: 1287.16 FINDINGS: ABSENCE OF INTRAVENOUS CONTRAST DECREASES SENSITIVITY FOR DETECTION OF FOCAL LESIONS AND VASCULAR PATHOLOGY. LOWER THORAX: Unchanged pleural based nodule in the left lower lobe. HEPATOBILIARY: No focal hepatic lesions. No biliary ductal dilatation. Status post cholecystectomy. SPLEEN: No splenomegaly. PANCREAS: No focal masses or ductal dilatation. ADRENALS: No adrenal nodules. KIDNEYS/URETERS: No hydronephrosis or solid mass lesions. A 6.2 mm left interpolar renal stone is slightly larger and a 4.4 mm inferior pole stone appearing unchanged.. PELVIC ORGANS/BLADDER: Unremarkable. PERITONEUM / RETROPERITONEUM: Ventral hernia containing loops of transverse colon is unchanged. LYMPH NODES: Unchanged iliac lymph node chain prominence. VESSELS: Scattered vascular calcification. GI TRACT: No distention or wall thickening. Diverticulosis without evidence of diverticulitis. BONES AND SOFT TISSUES: Mild degenerative changes of the spine. Anterior listhesis of L4 on L5 is unchanged. IMPRESSION: 1. There are two nonobstructing left renal stones. 2. Unchanged ventral hernia containing loops of large bowel Dee Dee Dee D.O. Dictated by: Dee Dee Dee D.O. on 01/28/2018 at 8:37 Electronically approved by: Dee Dee Dee D.O. on 01/28/2018 at 8:37 Dictated By: DEE DEE DEE DO 6 Transcribed By: JACKIE on 01/28/18836 COPY TO: FABRICIO HARRISON MD
[2019-11-28 13:54] VITALS: BP 110/58
--- NOTE | 2019-11-28 13:54 | NUR ---
Received patient transported direct admission via wheelchair to room 209. Respiration even and unlabored without SOB. Orientated to room and how to use the call light. Denies pain. Right foot cellulitis with dressing intact. Call light in reach.
[2019-11-28] MEDS ORDERED: FEOSOL45 MG PO (14:32)
[2019-11-28 14:33] VITALS: BP 110/58
[2019-11-28 16:47] LABS: CALCIUM 9.1 mg/dL (8.4-10.2); CREATININE, SERUM 1.45 mg/dL (0.72-1.25)
--- NOTE | 2019-11-28 17:38 | History and Physical ---
CHIEF COMPLAINT: Failed outpatient treatment with oral antibiotics and wound care to the right foot. Pseudomonas infection of the right foot. HISTORY OF PRESENT ILLNESS: The patient is a 64-year-old male with baseline diabetes type 2 on oral medication and also has lymphedema of the lower extremity, morbidly obese, associated with stable chronic medical problem. Apparently, his right foot diabetic foot infection with cellulitis for the past month or so, failed outpatient treatment. According to the patient, he started problem in October and since then the patient has seen his garbage stoker and also Infectious Disease. The patient has been given multiple oral antibiotics as an outpatient, but the foot did not get better. Matter of fact, it is a worsening with increasing swelling and redness on the dorsal surface of the foot. The patient is now directly admitted to the hospital for IV meropenem antibiotic treatment and also request for a PICC line to go home with meropenem. The patient is otherwise stable. He does not have any chest pain or shortness of breath. His left foot pain is stable. PAST MEDICAL HISTORY: 1. Diabetes type 2 with diabetic wound ulcer to the mid foot and also dorsal surface of the foot cellulitis. He has bilateral lower extremity lymphedema. 2. Morbid obesity. 3. Dyslipidemia. 4. Venous insufficiency chronically of the lower extremity. 5. Hypertension. 6. History of gout. SOCIAL HISTORY: The patient does not smoke or use alcohol. No regular drugs. ALLERGIES: NO KNOWN ALLERGIES. HOME MEDICATIONS: 1. Uroxatral. 2. Allopurinol. 3. Aspirin. 4. Cinnamon supplement. 5. Zetia. 6. HCTZ. 7. Iron. 8. Actos. 9. Ramipril. PHYSICAL EXAMINATION: VITAL SIGNS: Temperature is 98, blood pressure 110/58, pulse rate is 93, respirations 20. GENERAL: The patient is not in acute distress, he is awake. HEENT: Normocephalic and atraumatic. He is anicteric. NECK: Supple grossly. PULMONARY: Diminished breath sounds, but more so obesity. ABDOMEN: Soft, nontender, nondistented. EXTREMITIES: No gross cyanosis. Lymphedema much better controlled. Right foot cellulitis with ulcer. Infected diabetic foot ulcer. Redness of the right foot. NEUROLOGIC: No focal deficit. LABORATORY: Still pending. IMPRESSION: 1. Right foot infected diabetic foot ulcer with cellulitis of the right foot. The wound culture grew out to be Pseudomonas aeruginosa. 2. Diabetes type 2, on Actos under good control. PLAN: Continue with meropenem. Wound care. Consultation with Podiatry, Infectious Disease had been done. Resume some patient's home medication. We will monitor the patient's lab work when result is obtained. We will monitor the patient closely. MD DONAVAN Ko/RICH /[id number]
[2019-11-28] MEDS ORDERED: MEROPENEM 500MG/ NS 50ML 50 ML IV SCH ×2 (18:00→21:00)
[2019-11-28] MEDS ORDERED: MEROPENEM 500MG 500 MG in SODIUM CHLORIDE 0.9% 50ML 50 ML IV SCH (18:00)
--- NOTE | 2019-11-28 18:10 | NUR ---
pt has no labs just creatinine no cbc or INR nurse douglas erickson placed orders for labs and will call back once labs are completed. for safety reasons pt will wait for picc until labs are completed
[2019-11-28 18:26] LABS: BASOPHILS # (AUTO) 0.1 (0.0-0.1); BASOPHILS % 0.5 % (0.0-1.0); EOSINOPHILS # (AUTO) 0.6 (0.0-0.4); EOSINOPHILS % 6.1 % (0.0-6.0); HEMATOCRIT 44.9 % (38.2-49.6); HEMOGLOBIN 14.7 g/dL (14.0-18.0); LYMPHOCYTES # (AUTO) 1.2 (1.0-3.2); LYMPHOCYTES % 12.3 % (18.0-39.1); MEAN CORPUSCULAR HEMOGLOBIN 30.5 pg (28-32); MEAN CORPUSCULAR HGB CONC 32.7 g/dL (31-35); MEAN CORPUSCULAR VOLUME 93.2 fL (81-99); MONOCYTES % 10.2 % (4.4-11.3); NEUTROPHILS # (AUTO) 6.9 (2.1-6.9); NEUTROPHILS % 69.7 % (38.7-80.0); PLATELET COUNT 195 x10e3/uL (140-360); RED BLOOD COUNT 4.82 x10e6/uL (4.3-5.7); RED CELL DISTRIBUTION WIDTH 16.4 % (11.7-14.4)
--- NOTE | 2019-11-28 19:10 | NUR ---
BEDSIDE SHIFT REPORT RECEIVED. PATIENT IS RESTING IN BED, AAOX3. RESP EVEN AND UNLABORED. NO ACUTE DISTRESS NOTED. RIGHT FOOT DRESSING NOTED, DRY AND INTACT. EDUCATED PT ABOUT FALL PRECAUTIONS. PT VERBALIZED UNDERSTANDING. CALL LIGHT WITH IN EASY REACH. INSTRUCTED PT TO USE CALL LIGHT FOR ALL THE NEEDS. BED IS LOW AND LOCKED. SIDE RAILS X2. PT DENIES NEEDS AT THIS TIME.
[2019-11-28 19:30] LABS: INR 1.06; PROTHROMBIN TIME 14.3 seconds (11.9-14.5)
--- NOTE | 2019-11-28 20:10 | NUR ---
NOTIFIED RADIOLOGY THAT LAB WAS DONE. PICC TEAM SHOULD BE CALLED.
[2019-11-28 20:24] VITALS: BP 134/64
[2019-11-28 21:00] VITALS: BP 134/64
[2019-11-28] MEDS ORDERED: METRONIDAZOLE 500MG/NS 100ML 100 ML IV SCH (22:00)
[2019-11-28] MEDS ORDERED: SODIUM CHLORIDE 0.9% 250ML 250 ML ONE ×2 (22:04→23:04)
--- NOTE | 2019-11-28 22:05 | NUR ---
SPOKE TO RADIOLOGY IF PICC TEAM CAN COME IN THE MORNING. STARTED IV LEFT HAND 20G FOR IV ABX. PATIENT STATED HE WOULD LIKE TO SLEEP THROUGH THE NIGHT AND GET PICC LINE IN AM.
[2019-11-28 23:00] VITALS: BP 72/34
[2019-11-28] MEDS ORDERED: SODIUM CHLORIDE 0.9% 1000ML 1,000 ML ONE (23:05)
[2019-11-28 23:13] LABS: BASOPHILS # (AUTO) 0.1 (0.0-0.1); BASOPHILS % 0.6 % (0.0-1.0); EOSINOPHILS # (AUTO) 0.2 (0.0-0.4); EOSINOPHILS % 1.4 % (0.0-6.0); HEMATOCRIT 59.4 % (38.2-49.6); HEMOGLOBIN 19.2 g/dL (14.0-18.0); LYMPHOCYTES # (AUTO) 4.1 (1.0-3.2); LYMPHOCYTES % 35.8 % (18.0-39.1); MEAN CORPUSCULAR HEMOGLOBIN 30.3 pg (28-32); MEAN CORPUSCULAR HGB CONC 32.3 g/dL (31-35); MEAN CORPUSCULAR VOLUME 93.7 fL (81-99); MONOCYTES # (AUTO) 0.3 (0.2-0.8); MONOCYTES % 2.8 % (4.4-11.3); NEUTROPHILS # (AUTO) 6.5 (2.1-6.9); NEUTROPHILS % 57.3 % (38.7-80.0); PLATELET COUNT 240 x10e3/uL (140-360); RED BLOOD COUNT 6.34 x10e6/uL (4.3-5.7); RED CELL DISTRIBUTION WIDTH 17.9 % (11.7-14.4)
[2019-11-28] MEDS ORDERED: DIPHENHYDRAMINE HCL INJ 50 MG/ML VIAL ONE (23:16)
--- NOTE | 2019-11-28 23:29 | NUR ---
RESPONDED TO CALL LIGHT. PATIENT SAID HE DIDN'T FEEL WELL. UPON ENTERING TO ROOM, PATIENT WAS UNRESPONSIVE AND GASPING FOR AIR, NO PULSE NOTED. INITIATED CODE BLUE AND STARTED COMPRESSION. PATIENT WAS GIVEN MEROPENEM AT 2157. POSSIBLE ANAPHYLAXIS. PATIENT HAS NO KNOWN ALLERGIES. PATIENT GOT PULSE BACK AND INTUBATED. TRANSFERRED PATIENT TO ICU PER MD ORDER. DR PORTILLO ATTENDING AND FAMILY WERE NOTIFIED
[2019-11-28 23:30] LABS: INR 1.22
[2019-11-28] MEDS ORDERED: METHYLPREDNISOLONE SOD SUCC 125 MG/2ML VIAL IV ONE (23:30)
[2019-11-28 23:31] LABS: PARTIAL THROMBOPLASTIN TIME 33.7 seconds (23.8-35.5)
[2019-11-28 23:32] LABS: ALBUMIN 2.9 g/dL (3.5-5.0); ALBUMIN/GLOBULIN RATIO 0.7 (0.8-2.0); ANION GAP 17.3 mmol/L (8-16); CALCIUM 8.3 mg/dL (8.4-10.2); CREATININE, SERUM 1.36 mg/dL (0.72-1.25); POTASSIUM 4.3 mmol/L (3.5-5.1)
--- NOTE | 2019-11-28 23:36 | Diagnostic Imaging Report ---
EXAMINATION: CHEST SINGLE (PORTABLE) INDICATION: S/P INTUB. COMPARISON: Radiograph dated 05/14/2014. FINDINGS: Endotracheal tube tip is 4.5 cm above the jesse. Heart is not enlarged. Low lung volumes. Diffuse interstitial and hazy opacities throughout both lungs. No pneumothorax. No sizable pleural effusions. IMPRESSION: 1. Endotracheal tube tip is 4.5 cm above the jesse. 2. Diffuse interstitial and hazy opacities throughout both lungs concerning for atypical/viral pneumonia. Interstitial edema could also be considered. Signed by: Kane Leal MD on 11/28/2019 11:33 PM
[2019-11-28 23:39] LABS: CREATINE KINASE MB 1.1 ng/mL (0-5.0)
[2019-11-28] MEDS ORDERED: MIDAZOLAM HCL 50 MG in SODIUM CHLORIDE 0.9% 100 ML 90 ML IV PRN (23:45)
[2019-11-28] MEDS ORDERED: MIDAZOLAM HCL 2 MG/2 ML VIAL IV STA (23:50)
[2019-11-28] MEDS ORDERED: MIDAZOLAM HCL 5MG/ML 10ML VIAL 100 ML IV ONE (23:52)
[2019-11-28] MEDS ORDERED: MIDAZOLAM HCL 5 MG/ML VIAL ONE (23:54)
[2019-11-29] VITALS (26 sets, daily range): BP systolic 80–139; BP diastolic 24–72
[2019-11-29] MEDS ORDERED: SODIUM CHLORIDE 0.9% 1000ML 1,000 ML IV STA (00:18)
[2019-11-29] MEDS ORDERED: SODIUM CHLORIDE 0.9% 1000ML 1,000 ML ONE ×2 (00:22→10:41)
[2019-11-29] MEDS ORDERED: NOREPINEPHRINE 8 MG/D5W 250 ML 250 ML ONE (00:43)
[2019-11-29] MEDS ORDERED: DEXTROSE 50% SYRINGE 50 ML IV PRN ×2 (00:45→10:00)
[2019-11-29] MEDS ORDERED: NOREPINEPHRINE INJ 4MG/4ML 8 MG in DEXTROSE 5% 250ML 250 ML IV PRN (00:45)
[2019-11-29] MEDS ORDERED: FENTANYL CITRATE INJ 2,000 MCG in SODIUM CHLORIDE 0.9% 250ML 210 ML IV PRN (00:45)
[2019-11-29] MEDS ORDERED: FENTANYL 2000MCG/NS 250 250 ML ONE (01:14)
[2019-11-29 01:19] LABS: BILIRUBIN,URINE NEGATIVE (NEGATIVE); CLARITY,URINE CLEAR (CLEAR); COLOR,URINE YELLOW (YELLOW); KETONES,URINE NEGATIVE (NEGATIVE); LEUKOCYTE ESTERASE ,URINE NEGATIVE (NEGATIVE); NITRITE,URINE NEGATIVE (NEGATIVE); PROTEIN,URINE DIPSTICK NEGATIVE (NEGATIVE); URINE UROBILINOGEN 0.2 mg/dL (0.2 - 1)
[2019-11-29 01:23] LABS: BACTERIA,URINE FEW /HPF; EPITHELIAL CELLS,URINE RARE /LPF; RBC,URINE 0-5 /HPF (0-5); WBC,URINE (MAN) 0-5 /HPF (0-5)
--- NOTE | 2019-11-29 01:24 | Operative Report ---
DATE OF PROCEDURE: 11/29/2019 SURGEON: eJ Charles MD PROCEDURE: Central line placement under ultrasound guidance. PREOPERATIVE DIAGNOSIS: Cellulitis of the right foot and diabetes. POSTOPERATIVE DIAGNOSIS: Cellulitis of the right foot and diabetes. CONSENT: Consent was deemed emergent due to hypotension and possible sepsis. MEDICATIONS: 1% lidocaine for local anesthesia. DESCRIPTION OF PROCEDURE: The patient was placed in the supine position. The right neck was prepped sterilely with chlorhexidine. A full length sterile drape, sterile gown, sterile gloves, and sterile mask were used. 1% lidocaine was used to anesthetize the area between the heads of the sternocleidomastoid. An ultrasound machine was used to locate the right internal jugular vein. The vein collapsed easily on inspiration. There was no visible thrombosis. The vein was then cannulated under direct visualization with a 16-gauge needle. A wire was placed through the needle. A dilator was used to open the skin. A triple-lumen catheter was then placed over the wire by the Seldinger technique. All the ports flushed. COMPLICATIONS: None. ESTIMATED BLOOD LOSS: None. Je Charles MD [facility] /[id number]
--- NOTE | 2019-11-29 01:24 | Consultation ---
DATE OF CONSULTATION: 11/29/2019 PULMONARY CRITICAL CARE CONSULTATION: CHIEF COMPLAINT: Hypotension and respiratory failure following admission for cellulitis and administration of antibiotics. REFERRING PHYSICIAN: Dr. Alberto Brandt. HISTORY OF PRESENT ILLNESS: The patient is a 64-year-old man. He has a history of type 2 diabetes requiring oral medications. He also has a history of morbid obesity and chronic lymphedema. He was in direct admission from the office with cellulitis of the right foot that was not responding to outpatient antibiotics. He was receiving antibiotics on the medical hagen. Apparently, he developed difficulty breathing and bradycardia. He was also found to have hypotension. A Code Blue was called. CPR was initiated. The patient received epinephrine. He was intubated emergently by the emergency department physician and subsequently was given intravenous fluids and started on dopamine. In retrospect, the staff felt there was a temporal relationship between the administration of the imipenem and the difficulty breathing and hypotension. PAST MEDICAL HISTORY: 1. Type 2 diabetes requiring oral medications as an outpatient. 2. Bilateral lower extremity lymphedema. 3. Chronic ulcer on the dorsal surface medially in the right foot with associated cellulitis. 4. Hypertension. 5. History of gout. PAST SURGICAL HISTORY: Not obtainable at this time. ALLERGIES: MEROPENEM. SOCIAL HISTORY: No history of alcohol use. The patient is not a smoker. FAMILY HISTORY: Noncontributory. REVIEW OF SYSTEMS: The patient did not have fevers. There were no complaints of headaches. The patient did have difficulty breathing starting this evening, but did not have difficulty breathing initially. There was no complaint of chest pain. there is no nausea or vomiting. there was no history of focal neurological problems. The patient had chronic swelling in his lower extremities and erythema and cellulitis of his foot. PHYSICAL EXAMINATION: VITAL SIGNS: Blood pressure is now 110/50 on dopamine intravenously. Pulse rate is 100. He is currently on a PRVC mode of ventilation. He is receiving intravenous fluids along with dopamine. HEENT: No facial swelling or erythema. There is an endotracheal tube. There is a right IJ line. The site looks clean. There is a nasogastric tube. CARDIAC: Regular rate and rhythm. Normal S1, S2. LUNGS: Auscultation of the lungs shows decreased breath sounds at the bases. There is no wheezing. ABDOMEN: Soft, nontender. There is no rebound or guarding. EXTREMITIES: Chronic lymphedema. There is some cellulitis and ulceration on the right foot. NEUROLOGICAL: The patient to be moving all four extremities and requiring sedation. LABORATORY DATA: PT is 16 and PTT is 33.7. The BUN to creatinine ratio is 32 to 1.36. Carbon dioxide is 21 and the anion gap is 17. The electrolytes are within normal limits. Blood sugar is 168. White blood cell count is 11.3, hemoglobin is 19.2, and the platelet count is 240,000. RADIOGRAPHIC DATA: Chest x-ray shows interstitial infiltrates. IMPRESSION: 1. Acute respiratory failure. 2. Laryngeal and upper airway edema visualized at the time of intubation. 3. Cellulitis of the right foot with sepsis, present on admission. 4. Diabetes with requirement for oral medications. 5. Morbid obesity. 6. Acute kidney injury at the present on admission. 7. Polycythemia. 8. Dehydration and hypovolemia. 9. Hypertension. PLAN: 1. The patient will receive additional fluids equal to 30 mL/kg. 2. Continue broad-spectrum antibiotics. 3. Avoid meropenem because of the possibility of an anaphylactic reaction. 4. Avoid ramipril because of the possibility of laryngeal edema. 5. Monitor and control blood sugars. 6. Repeat ABG and adjust ventilator settings as tolerated. 7. The patient has received Solu-Medrol along with antihistamines and Pepcid for possible anaphylaxis. 8. DVT prophylaxis. 9. Versed as needed for sedation. Je Charles MD [facility] /[id number]
[2019-11-29] MEDS: LEVOFLOXACIN 750MG/D5W 150ML 150 ML IV SCH ×2 (01:30→09:07)
[2019-11-29] MEDS: FAMOTIDINE 20 MG/2 ML VIAL IV SCH ×3 (01:30→17:55)
[2019-11-29] MEDS: LINEZOLID 600 MG/D5W 300ML 300 ML IV SCH ×2 (01:30→13:44)
--- NOTE | 2019-11-29 01:37 | Diagnostic Imaging Report ---
EXAMINATION: CHEST XRAY LINE PLACEMENT INDICATION: Central Line Placement COMPARISON: Radiograph from 11/28/2019 FINDINGS: Right internal jugular central venous catheter tip projects at the cavoatrial junction. Endotracheal tube is 4.0 cm above the jesse. Enteric tube courses below the diaphragm. Diffuse interstitial and hazy opacities with mildly worsening patchy and linear opacities at the lung bases. No sizable pleural effusion. No pneumothorax. IMPRESSION: 1. Right internal jugular central venous catheter projects at the cavoatrial junction. No pneumothorax. 2. Interstitial edema or pneumonia with mildly worsening patchy opacities at the lung bases. Signed by: Kane Leal MD on 11/29/2019 1:34 AM
[2019-11-29] MEDS ORDERED: HEPARIN SOD (PORCINE) 5,000 UNIT/ML VIAL IV ONE (01:45)
[2019-11-29 01:46] LABS: BASOPHILS # (AUTO) 0.1 (0.0-0.1); BASOPHILS % 0.3 % (0.0-1.0); EOSINOPHILS # (AUTO) 0.2 (0.0-0.4); EOSINOPHILS % 1.1 % (0.0-6.0); HEMOGLOBIN 18.9 g/dL (14.0-18.0); LYMPHOCYTES % 10.1 % (18.0-39.1); MEAN CORPUSCULAR HEMOGLOBIN 30.2 pg (28-32); MEAN CORPUSCULAR HGB CONC 32.6 g/dL (31-35); MEAN CORPUSCULAR VOLUME 92.8 fL (81-99); MONOCYTES # (AUTO) 0.6 (0.2-0.8); NEUTROPHILS # (AUTO) 16.1 (2.1-6.9); NEUTROPHILS % 83.4 % (38.7-80.0); PLATELET COUNT 244 x10e3/uL (140-360); RED BLOOD COUNT 6.25 x10e6/uL (4.3-5.7); RED CELL DISTRIBUTION WIDTH 17.2 % (11.7-14.4)
[2019-11-29 02:04] LABS: ALBUMIN 2.6 g/dL (3.5-5.0); ALBUMIN/GLOBULIN RATIO 0.7 (0.8-2.0); CALCIUM 7.8 mg/dL (8.4-10.2); CREATININE, SERUM 1.75 mg/dL (0.72-1.25)
--- NOTE | 2019-11-29 02:04 | NUR ---
Dr. Mis Perez paged/voicemail notified to return call at 's request d/t possible sepsis secondary to right foot wound.
--- NOTE | 2019-11-29 02:18 | NUR ---
0210 - Reviewed antibiotics and 's orders with 214 - spoke with at this time.
[2019-11-29] MEDS ORDERED: MIDAZOLAM HCL 5MG/ML 10ML VIAL 100 ML IV ONE (02:43)
[2019-11-29] MEDS: ENOXAPARIN SOD INJ 40 MG/0.4 ML SYR SC SCH (02:52)
[2019-11-29 04:08] LABS: ABG HCO3 17 mmol/L (22-26); ABG PCO2 41 mmHg (35-45); ABG PH 7.23 (7.35-7.45); ABG PO2 161 mmHg (80-105); ABG TCO2 19
[2019-11-29 04:14] LABS: ABG HCO3 17 mmol/L (22-26); ABG PCO2 33 mmHg (35-45); ABG PH 7.33 (7.35-7.45); ABG PO2 321 mmHg (80-105)
[2019-11-29 04:15] LABS: ABG TCO2 18
[2019-11-29 04:57] LABS: BASOPHILS # (AUTO) 0.1 (0.0-0.1); BASOPHILS % 0.3 % (0.0-1.0); EOSINOPHILS # (AUTO) 0.1 (0.0-0.4); EOSINOPHILS % 0.2 % (0.0-6.0); HEMATOCRIT 58.7 % (38.2-49.6); HEMOGLOBIN 19.3 g/dL (14.0-18.0); LYMPHOCYTES # (AUTO) 1.1 (1.0-3.2); LYMPHOCYTES % 3.9 % (18.0-39.1); MEAN CORPUSCULAR HEMOGLOBIN 30.1 pg (28-32); MEAN CORPUSCULAR HGB CONC 32.9 g/dL (31-35); MEAN CORPUSCULAR VOLUME 91.4 fL (81-99); MONOCYTES # (AUTO) 1.5 (0.2-0.8); MONOCYTES % 5.4 % (4.4-11.3); NEUTROPHILS # (AUTO) 24.8 (2.1-6.9); NEUTROPHILS % 87.6 % (38.7-80.0); PLATELET COUNT 266 x10e3/uL (140-360); RED BLOOD COUNT 6.42 x10e6/uL (4.3-5.7); RED CELL DISTRIBUTION WIDTH 17.6 % (11.7-14.4)
[2019-11-29 05:16] LABS: ALBUMIN 2.6 g/dL (3.5-5.0); ALBUMIN/GLOBULIN RATIO 0.7 (0.8-2.0); ANION GAP 20.5 mmol/L (8-16); CALCIUM 7.7 mg/dL (8.4-10.2); CREATININE, SERUM 1.88 mg/dL (0.72-1.25); POTASSIUM 4.5 mmol/L (3.5-5.1)
[2019-11-29] MEDS ORDERED: ALBUMIN 25% 25GM 100ML 0.25 GM/ML BTL IV ONE (06:30)
[2019-11-29 06:58] LABS: BAND NEUTROPHILS % (MANUAL) 35 %; LYMPHOCYTES % (MANUAL) 3 % (19-48); MONOCYTES % (MANUAL) 4 % (3.4-9.0); NEUTROPHILS % (MANUAL) 58 % (40-74); NUCLEATED RED BLOOD CELLS 1
[2019-11-29 07:00] LABS: PLATELET ESTIMATE ADEQUATE; PLATELET MORPHOLOGY COMMENT NORMAL; POLYCHROMASIA RARE; RBC MORPHOLOGY COMMENT NORMAL
[2019-11-29] MEDS ORDERED: INSULIN REGULAR, HUMAN 100 UNIT/1 ML 3ML VIAL SQ SCH (07:30)
--- NOTE | 2019-11-29 07:34 | Diagnostic Imaging Report ---
X-ray 3 views of the right foot HISTORY: Foot pain. COMPARISON: None available. FINDINGS/IMPRESSION: Bones/joints: Status post first metatarsal head replacement and hammertoe correction of the second third and fourth toes. There are fractured and displaced fragments of the hardware is in third and fourth toes. There are degenerative changes of multiple interphalangeal joints. No acute osseous fracture or evidence of dislocation. Soft tissues: Atherosclerotic vascular calcification. No focal soft tissue abnormality. Signed by: Kyara Powers MD on 11/29/2019 7:30 AM
[2019-11-29] MEDS: ALLOPURINOL 300 MG TAB PO SCH (09:00)
[2019-11-29] MEDS ORDERED: PIOGLITAZONE HCL 15 MG TAB PO SCH (09:00)
[2019-11-29] MEDS ORDERED: RAMIPRIL 5 MG CAP PO SCH (09:00)
[2019-11-29] MEDS ORDERED: HYDROCHLOROTHIAZIDE 25 MG TAB PO SCH (09:00)
[2019-11-29] MEDS: ALFUZOSIN HCL 10 MG TAB.ER.24H PO SCH (09:07)
[2019-11-29] MEDS: ASPIRIN 81 MG CHEW TAB PO SCH (09:07)
[2019-11-29] MEDS: EZETIMIBE 10 MG TAB PO SCH (09:07)
--- NOTE | 2019-11-29 09:10 | Diagnostic Imaging Report ---
EXAM: Renal Ultrasound INDICATION: Elevated creatinine concerning for renal failure. COMPARISON: CT of the abdomen/pelvis on 10/03/2018. TECHNIQUE: Transverse and longitudinal images of the kidneys and bladder were obtained. FINDINGS: The examination was limited due to patient's body habitus and difficulty positioning. Right Kidney: Size: 11.6 x 5.3 x 6.4 cm Echogenicity: Normal Parenchymal thickness: Normal Collecting system: No hydronephrosis Stones: None Cyst/Mass: None Left Kidney: Size: 9.1 x 6.1 x 4.4 cm Echogenicity: Normal Parenchymal thickness: Normal Collecting system: No hydronephrosis Stones: None Cyst/Mass: None Bladder: Decompressed with a Elam catheter in place. IMPRESSION: 1. Limited examination due to patient's body habitus and difficulty positioning. 2. No sonographic abnormality identified. Signed by: Kyara Powers MD on 11/29/2019 9:07 AM
[2019-11-29] MEDS ORDERED: MIDAZOLAM HCL 5MG/ML 10ML VIAL 100 ML IV PRN (09:15)
[2019-11-29] MEDS ORDERED: FENTANYL 2000MCG/NS 250 250 ML IV PRN (09:15)
[2019-11-29] MEDS ORDERED: ACETAMINOPHEN 325 MG TAB PO PRN (11:45)
--- NOTE | 2019-11-29 11:53 | NUR ---
SHELTON PLACEMENT 1100 11/29/19 INDICATION: Hemodynamic monitoring Pre-procedure diagnosis: respiratory failure post procedure diagnosis: respiratory failure Performed By: Katt Marquez WEARING [employer]PAREL SHAKER Flying Instructor: Dr. Je Charles A time out was performed to verify correct pt, procedure, site and positioning. Anoop test was performed to verify adequate perfusion. Insertion bundle was utilized, The left wrist was draped in sterile fashion. Sterile field and gloves maintained while Arrow line was inserted into the left radial artery. Appropriate pulsile blood return was achieved. The catheter was sutured in place using sterile technique. Perfusion to the extremity distal to the point of the catheter insertion was checked and found to be adequate. Dr. Charles was present for the entire procedure. Estimated blood loss <0ml> The pt tolerated the procedure well, and there were no complications Thank you! Katt Marquez MSN, DUMP GROUNDS CHECKER, AGACNP-BC Dr. Je Charles
--- NOTE | 2019-11-29 11:56 | Consultation ---
DATE OF CONSULTATION: 11/29/2019 Cardiology Consultation REASON FOR CONSULTATION: In hospital arrest. HISTORY OF PRESENT ILLNESS: Mr. Mireles is a 64-year-old gentleman with past medical history of hypertension, type 2 diabetes for many years, hypercholesteremia, super morbid obesity, prior history of right foot osteomyelitis, chronic venous stasis issues in the bilateral lower extremities and also has nonhealing wound in his right foot related to underlying infection. He has been managed by wound Care for many, many years. He has an interesting history of previous anesthesia reaction where he went asystole and was taken emergently for heart catheterization in 2014. At that time, this is found to be normal coronary arteries. He does not carry diagnosis of CAD. He presented to this institution with worsening right foot wound purulence, sepsis, etc. and was brought into this hospital for IV antibiotic therapy. He was initiated on meropenem therapy and shortly after infusion began he complained that he had sudden onset of difficulty breathing, wheezing and then arrested. After prolonged CPR and ACLS measures, the patient was revived and is in the ICU for further care and management. Current hemodynamics shows blood pressure 106/69 with a pulse of 117, O2 saturation is currently 97% on the vent and he is currently on some Levophed for blood pressure support. Stat echocardiogram revealed preserved left ventricular function instead bedside lower extremity venous duplex failed to reveal any evidence of DVT. He is here with a working diagnosis of severe sepsis, septic shock with potential anaphylactic type reaction to IV antibiotic therapy. His EKG review reveals sinus tachycardia. There is no history that can be elicited due to his clinical state and troponin is mildly elevated at 1, which is not surprising given his CPR. PAST MEDICAL HISTORY: 1. Hypertension. 2. Type 2 diabetes. 3. Hypercholesteremia. 4. Morbid obesity. 5. Venous stasis ulcerations. 6. History of right foot osteomyelitis. 7. BPH. PAST SURGICAL HISTORY: 1. History of left inguinal surgery in February 2005. 2. Right great toe surgery in 2013. 3. Foot operation in 2013. 4. Heart catheterization in 2014. FAMILY HISTORY: Mother 86, hypertension, diabetes. Father at 82 with a heart attack and stroke. SOCIAL HISTORY: He is . He is a nonsmoker. There is no alcohol use. 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 ALLERGIES: INCLUDE STATINS AND MOST RECENTLY PERHAPS ISSUES WITH RAMIPRIL AND MEROPENEM. REVIEW OF SYSTEMS: Unable to be obtained secondary to intubated state. PHYSICAL EXAMINATION: VITAL SIGNS: Height of 73 inches, weight of 400 pounds, BMI is 52.8, temperature of 99.6, pulse of 120, respiratory rate of 22 over breathing of vent, blood pressure 111/59 with a MAP of 76, O2 saturation 100% on the vent. GENERAL: This is an acutely ill gentleman who is currently sedated on the vent. HEENT: Pupils equal, round, and reactive to light. Oropharynx is with endotracheal tube. NECK: There is a right IJ triple-lumen catheter. CARDIOVASCULAR: Tachycardic. Normal S1, S2. 2/6 systolic murmur at the left lower sternal border. LUNGS: Show slightly decreased air flow throughout lung garcia. No crackles. ABDOMEN: Soft, nontender, obese with normoactive bowel sounds. No hepatosplenomegaly. BACK: No costovertebral angle tenderness. EXTREMITIES: Warm. There is notable advanced venous stasis changes below the shins bilaterally with lymphedema type changes as well. Also, his right foot is wrapped and notable with a bad wound. Diminished pedal pulses. NEUROLOGIC: Unable to obtain secondary to sedated state. LABORATORY DATA: White count of 28.4, hemoglobin 19.3, hematocrit of 58.7, and platelets of 266. Sodium 135, potassium 4.5, chloride 104, bicarb of 15, BUN 35, creatinine 1.88. Glucose of 311, calcium is 7.7, AST 52, ALT 31, alkaline phosphatase 47, total protein of 6.3, albumin of 2.6. INR is 1.22. UA is unremarkable. ABG last is 7.33, pCO2 33, PO2 of 321, and this is 100% FiO2. Coronavirus x1 nondetected. Wound culture of the right foot shows gram-negative bacillus. Blood culture pending. EKG reveal sinus tachycardia and nonspecific ST-T wave changes. DIAGNOSES: 1. Cardiac arrest with suspicion perhaps anaphylactic reaction to meropenem by history. 2. Right foot soft tissue infection, diabetic foot ulcer with history of osteo in the foot. 3. Type 2 diabetes with complications. 4. Hypercholesteremia. 5. Type 2 myocardial infarction. PLAN/RECOMMENDATIONS: 1. From a cardiovascular standpoint for right now, we will recommend a conservative course of action. 2. Agree with treatment of allergic reaction per critical care team and primary team. 3. What is encouraging is that he has had previous heart catheterization in 2015 for a similar clinical scenario is showing normal coronaries. 4. Echocardiogram reviewed showing preserved left ventricular function. 5. Our goal today is to hopefully decrease pressure requirement. 6. We will defer for antibiotic therapy for his foot wound, which may be having an element of septic shock. 7. We will adjust therapy as clinical course dictates. MD LURDES Jones/RYLANDL /[id number]
--- NOTE | 2019-11-29 11:57 | NUR ---
Nutrition Intervention Note RD Recommendation(s) for Physician: -When medically feasible, rec initiating continuous TF with Vital HP @30ml/hr, advance as tolerated to goal rate of 80ml/hr (1920kcal, 168g protein, 1605ml water) -Monitor for GI tolerance Plan of Care: RD following, monitoring for tolerance and adequacy, TF Nutrition reason for involvement: new TF order RD Assessment 11/28 64 yo morbidly obese M, who was admitted to [facility] for right foot cellulitis. Pipo cullen was called yesterday due to acute respiratory failure. Pt was subsequently intubated and ventilated. OGT has been placed; TF has not started during my time of visit. Pt was on Levophed @10mcg/min. Principal Problems/Diagnoses: 1. Acute respiratory failure. 2. Laryngeal and upper airway edema visualized at the time of intubation. 3. Cellulitis of the right foot with sepsis, present on admission. PMH: 1. Type 2 diabetes requiring oral medications as an outpatient. 2. Bilateral lower extremity lymphedema. 3. Chronic ulcer on the dorsal surface medially in the right foot with associated cellulitis. 4. Hypertension. 5. History of gout. I/O: reviewed GI: abdomen soft, round, + flatus, + OGT Skin: R foot wound Labs: (11/28) Na 135 L, BUN 35 H, Creatinine 1.88 H, GFR 36 L, POC glucose 288 H, Ca 7.7 L, AST 52 H, Meds: pepcid, levaquin, lovenox, levophed Ht: 73in Wt: 400lb BMI: 52.8kg/m2 IBW: 184lb +/- 10% Malnutrition Evaluation (11/29/19) The patient does not meet criteria for a specified degree of malnutrition at this time. Will re-evaluate at follow-up as appropriate. Nutrition Prescription (Diet Order): Glucerna 1.2 @30ml/hr Estimated Nutritional Needs: Calories: 1848 2100kcal (22-25kcal/kg IBW) Protein : 168 210g (2-2.5g/kg IBW) Diet Adequacy: Not meeting calorie needs, Not meeting protein needs Tolerance: Tolerance pending Diet Education Needs Assessment: Diet education not indicated, patient on temporary/transition diet. Nutrition Care Level: moderate Nutrition Diagnosis: Swallowing difficulty related to current medical status (intubated, ventilated) as evidenced by EN via OGT. Goal: Patient will meet 75-100% of estimated needs by follow up Progress: N/A Interventions: Composition, Rate, Route Monitoring/Evaluation: Total energy intake, Total protein intake, Formula/Solution, Weight change Signed: Karina Brannon MS, RD, LD
--- NOTE | 2019-11-29 12:01 | Progress Note ---
DATE: 11/29/2019 SUBJECTIVE: The patient is currently on Levophed, but has been decreased to 16 mcg. He remains on mechanical ventilation with a PRVC mode of ventilation at a rate of 26 and the tidal volume is 600. His PEEP is set at 8 and his FiO2 is set at 50%. The patient was evaluated by Cardiology. PHYSICAL EXAMINATION: VITAL SIGNS: Blood pressure is 100/62, saturation is 100%. He is on the above-mentioned ventilator settings and his pulse is 117. His respiratory rate is 26. HEENT: Shows no facial swelling or erythema. There is an oral endotracheal tube. There is a right IJ line. The site looks clean. There is no drainage. There is an arterial line in place. CARDIAC: Reveals regular rate and rhythm. Normal S1, S2. LUNGS: Auscultation of lungs shows decreased breath sounds at the bases. There is no wheezing. ABDOMEN: Soft and nontender. There is no rebound or guarding. EXTREMITIES: Shows no leg edema or calf tenderness. There is no cyanosis or clubbing. SKIN: Shows no rashes. NEUROLOGICAL: Shows no focal abnormalities. LABORATORY DATA: The white blood cell count of 28.3, hemoglobin is 19.3 and the platelet count is 266. [id number] ratio is 35 to 1.88. The carbon dioxide is 15. The other electrolytes within normal limits. Troponin I is 27.5. Albumin is 2.6. IMPRESSION: 1. Anaphylactic shock secondary to medications. 2. Acute respiratory failure. 3. Cellulitis of the right foot with severe sepsis, present on admission. 4. Diabetes requiring oral medications as an outpatient. 5. Morbid obesity. 6. Acute kidney injury at the time of the admission. 7. Polycythemia. 8. Hypertension. PLAN: 1. Continue to wean Levophed as tolerated. 2. Continue current antibiotics and await culture results. 3. Continue to wean ventilator as tolerated. Repeat ABG. 4. Continue to wean Levophed. 5. Continue antihistamines and Pepcid. 6. Case discussed with , Cardiology, Internal Medicine, nursing and Respiratory. Greater than 35 minutes in direct critical care time. Je Charles MD [facility]/MODL /[id number]
[2019-11-29] MEDS: INSULIN LISPRO 100 UNIT/1 ML 3ML VIAL SQ SCH ×4 (12:10→22:00)
[2019-11-29 12:21] LABS: ABG PCO2 25 mmHg (35-45); ABG PH 7.39 (7.35-7.45); ABG PO2 174 mmHg (80-105)
--- NOTE | 2019-11-29 12:21 | Consultation ---
DATE OF CONSULTATION: 11/29/2019 TIME: 10:[address] David covering for Dr. Ashley. CHIEF COMPLAINT/HISTORY OF PRESENT ILLNESS: This is a pleasant gentleman, who was admitted in regard to cellulitis on the right lower extremity. He has given a dose of meropenem coated and was subsequently placed in the ICU and intubated. I was seen this patient when he was currently intubated. At this point in time, he was unable to answer questions. PAST MEDICAL HISTORY: 1. Gout, cellulitis. 2. Type 1 diabetes mellitus. 3. Cellulitis, right lower extremity. MEDICATIONS: Extensive list, see chart. ALLERGIES: TO MEROPENEM AND RAMIPRIL. PREVIOUS SURGICAL HISTORY: As per chart. REVIEW OF SYSTEMS: See admission history and physical. PHYSICAL EXAMINATION: GENERAL: The patient is alert, awake, and oriented x3, currently in no acute distress. VITAL SIGNS: Temperature is , pulse is 120, respiratory rate is 26, blood pressure is 11/59. EXTREMITIES: Lower extremity physical examination; the patient is currently admitted. VASCULAR: The patient has +4/4 DP and PT pulses, right lower extremity. DERMATOLOGIC: Reveals erythema as well as maceration to the inner digits, regions of 1st to 4th of the right lower extremity. Localized erythema is present. There is no abscess present. There is an overlying preulcer lesion on the plantar aspect of the right first metatarsal . However, there is no purulence or underlying ulceration. ORTHOPEDIC: Deferred at this time. NEUROLOGIC: The patient respond. LABORATORY/DIAGNOSTIC DATA: WBC is 28.35, RBC is 6.42, hemoglobin 19.3, hematocrit is 58.7, and platelet count is 266. Gram stain in the right lower extremity is consistent with Gram-negative bacilli. ASSESSMENT: 1. Diabetes mellitus type 1. 2. Ulceration on the right foot. 3. Tinea pedis with secondary cellulitis. RECOMMENDATIONS: 1. At this point in time, we will add ketoconazole cream twice daily to the regimen between the first through fifth digits. 2. Agree with Gram-negative coverage per Infectious Disease. 3. Further recommendations will be pending the patient's clinical progression. Dr. Cook, thank you for this consultation. We will be happy to follow this patient with you. Cristhian TRANG David MM/RICH /[id number]
[2019-11-29 12:22] LABS: ABG HCO3 15 mmol/L (22-26); ABG TCO2 16
[2019-11-29] MEDS ORDERED: LACTATED RINGER'S 1,000 ML INJ SCH (13:15)
--- NOTE | 2019-11-29 13:27 | Consultation ---
DATE OF CONSULTATION: 11/29/2019 Consultation requested regarding cellulitis right foot and septic shock. Thank you for this consultation. HISTORY OF PRESENT ILLNESS: This is a 64-year-old male who has history of diabetes mellitus, has had chronic infection involving the right foot, has been on multiple antibiotic treatments as an outpatient. He has been seen regularly at the wound care clinic. He was on broad-spectrum antibiotic treatment without any improvement. There was more redness and swelling in the right foot. The patient's cultures from outpatient were positive for Pseudomonas aeruginosa, multidrug resistant organism, and bacteroides. He recently had been on oral metronidazole. The patient was admitted to the hospital because there was no oral alternate regimen for treatment for the soft tissue infection, involving the right foot. He was admitted to the hospital. At the time of admission, the patient offered no specific complaints except for redness and swelling in the right foot. During hospitalization, the patient was initiated on an intravenous antibiotic treatment of meropenem, with PICC line placement with plans for the patient to receive the antibiotic treatment and possible discharge in a few days. The patient developed respiratory distress after meropenum was initiated, went into respiratory failure, required CPR, resuscitation for about 20 minutes, intubated and then transferred to the intensive care unit. The patient was placed on a ventilator, placed on broad-spectrum antibiotics treatment and requiring vasopressor support, currently he is intubated, sedated, no further history is obtainable. The work up that has been done since the time of admission initially reveled white count of 9.9, which is now 28,000, elevated BUN and creatinine at 35/1.8, elevated troponin, lactic acid elevated at 4.8, this was obtained after resuscitation. LFTs are normal. Urinalysis is unremarkable. imaging studies revealed chest x-ray showing bilateral infiltrates. Cultures on the foot are showing gram-negative bacilli, blood cultures are pending. REVIEW OF SYSTEMS: Cannot be performed. PAST MEDICAL HISTORY: 1. Diabetes mellitus. 2. morbid obesity. 3. Hyperlipidemia. 4. Venous insufficiency in lower extremities. 5. Hypertension. 6. History of gout. ALLERGIES: NO KNOWN DRUG ALLERGIES. HOME MEDICATIONS: Reviewed. FAMILY HISTORY: Noncontributory. SOCIAL HISTORY: No known alcohol, tobacco, or drug use. PHYSICAL EXAMINATION: VITAL SIGNS: Temperature 99.6, pulse 117, respiratory rate 24, and blood pressure currently is 100/62 on Levophed. HEENT: Normocephalic and atraumatic. Extraocular movements not assessed. NECK: Supple. LUNGS: Bilateral crackles. HEART: Sounds S1, S2. No murmur. No gallop. ABDOMEN: Soft, nontender, and normoactive bowel sounds. EXTREMITIES: There is erythema involving the right foot, distal half of the foot with some maceration. No overt discharge, no overt abscess formation. LABORATORY DATA: Urinalysis is negative. WBC count is 28, hemoglobin 19, platelets 266. BUN of 35 and creatinine 1.8, glucose 311. LFTs are normal. IMAGING: Chest x-ray shows bilateral infiltrates. X-ray of the right foot shows atherosclerotic vascular calcification. Echocardiogram performed, result is still pending. ASSESSMENT: 1. Right diabetic foot infection. 2. Cellulitis, right foot. 3. Acute respiratory failure, possibly related to anaphylactic reaction to the meropenem. 4. Leukocytosis, related to possible underlying pneumonia, cellulites, and acute leukemoid reaction from the recent events. 5. Acute kidney injury. 6. Followup culture results from the right foot, antibiotic regimen of linezolid and levofloxacin is adequate at this time. We will follow cultures and we will adjust antibiotics accordingly. Thank you, Dr. Cook for this consultation. We will follow the patient along with you. Roscoe Perez MD SR/MODL /[id number]
[2019-11-29] MEDS ORDERED: FUROSEMIDE INJ 10 MG/ML 4 ML VIAL IV ONE (14:00)
--- NOTE | 2019-11-29 14:02 | Consultation ---
DATE OF CONSULTATION: 11/29/[address] Vesna Munoz. CHIEF COMPLAINT/HISTORY OF PRESENT ILLNESS: This is a pleasant 64-year-old male who was admitted in regard to multiple wounds in both lower extremities. We were asked to see this patient in regard to right lower extremity. This is a pleasant 64-year-old diabetic male has been admitted with an ulceration on the plantar aspect of the right heel. The patient speaks Nepali and the nurse was present in the office. He currently denies any nausea, vomiting, fever, chills, thigh pain, chest pain, calf pain, or shortness of breath. PAST MEDICAL HISTORY: Significant for gout, insulin-dependent diabetes mellitus, hypertension, and multiple wounds in both lower extremities, and right foot cellulitis. MEDICATIONS: Extensive list, see chart. ALLERGIES: TO MEROPENEM AND RAMIPRIL. PAST SURGICAL HISTORY: See chart. REVIEW OF SYSTEMS: See admission history and physical. PHYSICAL EXAMINATION: GENERAL: The patient is alert, awake, and oriented x3, currently in no acute distress. VITAL SIGNS: Temperature is 99.6, pulse is 120, respiratory rate is 26, blood pressure is 111/59. EXTREMITIES: Lower extremity physical examination; the patient has +1/4 DP and PT pulses bilaterally. Capillary refill time is approximately 5 seconds to right lower extremity. DERMATOLOGIC: Reveals large bulla formation on the posterior aspect of the right heel with dark tinge to hemorrhagic fluid along the posterior heel of the right lower extremity. There is no surrounding erythema to this bulla formation. NEUROLOGIC: The patient has loss as well as sharp to light touch sensation in the bilateral lower extremities. ORTHOPEDIC: Deferred at this time, except for he has mild posterior aspect of right heel. LABORATORY: Right foot cultures are consistent with Gram-negative bacilli. WBC is 28.35, RBC is 6.42, hemoglobin 19.3, hematocrit is 58.7, platelet count is 266. RADIOGRAPHIC EXAMINATION: Three views of the right foot reveal atherosclerotic changes to the right lower extremity. No acute osseous abnormality noted to the right heel. ASSESSMENT: 1. Decubitus ulceration on the right posterior heel with large bulla formation. 2. Cellulitis, right lower extremity. 3. Diabetes mellitus with peripheral neuropathy as well as peripheral vascular disease. RECOMMENDATIONS: 1. At this point in time, the bulla was drained of all fluid. Did agree with IV antibiotics as per Dr. Cook. We will start with wound care per wound care team. 2. Further recommendations will be pending the patient's clinical progression. No surgery is needed at this point time. 3. An MRI without contrast will be ordered, right lower extremity to rule out underlying abscess. 4. Arterial Doppler will be ordered to rule out peripheral vascular disease. Dr. Cook, thank you for this consultation. We will be happy to follow this patient with you. Cristhian David DPM MM/RICH /[id number]
[2019-11-29] MEDS: NOREPINEPHRINE 8 MG/D5W 250 ML 250 ML IV PRN ×2 (14:04→23:15)
--- NOTE | 2019-11-29 14:07 | Consultation ---
DATE OF CONSULTATION: 11/29/2019 INITIAL NEPHROLOGY CONSULTATION REPORT: REASON FOR CONSULTATION: Oliguria, acute kidney injury. HISTORY OF PRESENT ILLNESS: Mr. Clement Mireles is a 64-year-old male who is here in the ICU at [facility]. He is intubated. He is on a ventilator so he is not able to give a history so the history is obtained primarily from the patient's medical records, nursing staff, and caregivers. I am being asked to see him because he has produced very little urine output and his serum creatinine has gone up to 1.88. Initially when he was admitted, it was 1.45, it went even further down to 1.36, then it azucena to 1.75 and now it is 1.88. I do not have any old values prior to this admission, so I do not know what his baseline renal function is, but apparently the patient was in the Wound Care Clinic for his foot and he was receiving antibiotic. After he received the imipenem, the patient said he was not feeling good. Actually, later on a code blue was called. He was given epinephrine. He was then transferred to the ICU. He was placed on a ventilator. He is currently on ventilator and he actually is on some vasopressor support with Levophed. The patient is awake. PAST MEDICAL HISTORY: 1. The patient has history of diabetes. 2. Hypertension. 3. Foot wound. 4. Morbid obesity. 5. Hyperlipidemia. 6. History of osteomyelitis in the past. PAST SURGICAL HISTORY: He has had a foot operation before. He has had inguinal surgery. SOCIAL HISTORY: The patient has no smoking. No EtOH. No HIV risk factors. REVIEW OF SYSTEMS: As per HPI, no further review of system can be obtained. The patient is intubated on a ventilator. PHYSICAL EXAMINATION: VITAL SIGNS: Blood pressure is 96/60, pulse 115. GENERAL: The patient is morbidly obese. He is intubated on a ventilator. CARDIOVASCULAR: Tachycardia. LUNGS: Decreased breath sounds bases. ABDOMEN: Distended. He is obese. EXTREMITIES: No significant edema. LABORATORY DATA: Sodium 135, potassium 4.5, chloride 104, bicarbonate 15, BUN and creatinine 35 and 1.8 respectively, calcium 7.7. Blood gas shows pH 7.39, pCO2 25, bicarb is 15. Urinalysis is essentially unremarkable, so white count 28, hemoglobin and hematocrit 19 and 58 respectively. Platelet count is within normal limits. Wound culture shows preliminarily gram-negative rods. Blood culture is pending. IMPRESSION/PLAN: 1. Acute kidney injury superimposed on probable chronic kidney disease. 2. Hypotension. 3. Shock. 4. Metabolic acidosis. 5. Foot wound. 6. Oliguria. 7. Rule out sepsis. PLAN: At the present time, the patient is hypotensive in a state of shock. He needs IV fluid. I will go ahead and write for lactated Ringer. He can have the first liter at 125 mL an hour. The next 2 L can be 100 mL an hour. NSAIDs, LANIER II inhibitors, IV contrast should be avoided. I will go ahead and give him one dose of Lasix 60 mg IV to try to convert him from oliguria to non oliguria. At this present moment, he does not need dialysis. However, it is likely that if he does not improve over the next 24 to 48 hours, he might need dialysis. I think the patient also has elevated hemoglobin, hematocrit. This could be hemoconcentration just from volume depletion. We will see. He has elevated white count and that the wound cultures preliminarily show gram-negative rods. I will follow the patient with you. Thank you Dr. Cook for allowing me to participate in the care of this patient with you. Ather MD LOTTIE Abraham/RICH /[id number]
[2019-11-29] MEDS ORDERED: SUCCINYLCHOLINE CHLORIDE 20 MG/ML 10ML VIAL ONE (15:01)
[2019-11-29] MEDS ORDERED: MIDAZOLAM HCL 2 MG/2 ML VIAL ONE (15:01)
--- NOTE | 2019-11-29 15:14 | NUR ---
Dr Charles notified of patient's ABG results at this time, new orders received and carried out.
[2019-11-29] MEDS ORDERED: ENOXAPARIN SOD INJ 40 MG/0.4 ML SYR SC SCH (17:00)
--- NOTE | 2019-11-29 19:15 | NUR ---
Report received. Assumed care. Assessment done. See interventions. Orally intubated with 7.5 FR ETT secured @ 25 cm at the lip. Vent settings: TV 600, FIO2 50%, PRVC 26 & PEEP 8cm. OGT with glucerna 1.2 @ 30ml/hr.
--- NOTE | 2019-11-29 20:20 | NUR ---
Blood drawn for lactic acid.
--- NOTE | 2019-11-29 20:40 | NUR ---
Very agitated. Versed resumed @ 5mg/hr or 10ml/rh.
[2019-11-29] MEDS: LACTATED RINGER'S 1,000 ML INJ SCH (21:50)
[2019-11-30] VITALS (25 sets, daily range): BP systolic 78–164; BP diastolic 48–74
[2019-11-30] MEDS: LINEZOLID 600 MG/D5W 300ML 300 ML IV SCH ×2 (01:36→12:23)
[2019-11-30] MEDS: INSULIN LISPRO 100 UNIT/1 ML 3ML VIAL SQ SCH ×4 (01:51→18:00)
[2019-11-30] MEDS: ENOXAPARIN SOD INJ 40 MG/0.4 ML SYR SC SCH (02:28)
[2019-11-30 05:45] LABS: BASOPHILS # (AUTO) 0.1 (0.0-0.1); BASOPHILS % 0.3 % (0.0-1.0); EOSINOPHILS % 0.1 % (0.0-6.0); HEMATOCRIT 45.6 % (38.2-49.6); HEMOGLOBIN 15.3 g/dL (14.0-18.0); LYMPHOCYTES # (AUTO) 1.1 (1.0-3.2); LYMPHOCYTES % 5.5 % (18.0-39.1); MEAN CORPUSCULAR HGB CONC 33.6 g/dL (31-35); MEAN CORPUSCULAR VOLUME 89.4 fL (81-99); MONOCYTES # (AUTO) 0.9 (0.2-0.8); MONOCYTES % 4.5 % (4.4-11.3); NEUTROPHILS # (AUTO) 17.5 (2.1-6.9); NEUTROPHILS % 88.9 % (38.7-80.0); PLATELET COUNT 220 x10e3/uL (140-360); RED CELL DISTRIBUTION WIDTH 15.7 % (11.7-14.4)
[2019-11-30 06:13] LABS: ALBUMIN 2.9 g/dL (3.5-5.0); ALBUMIN/GLOBULIN RATIO 0.9 (0.8-2.0); ANION GAP 16.9 mmol/L (8-16); CALCIUM 7.4 mg/dL (8.4-10.2); CREATININE, SERUM 2.59 mg/dL (0.72-1.25); POTASSIUM 4.9 mmol/L (3.5-5.1)
[2019-11-30 06:27] LABS: ALBUMIN 2.9 g/dL (3.5-5.0); ANION GAP 16.9 mmol/L (8-16); CALCIUM 7.4 mg/dL (8.4-10.2); CREATININE, SERUM 2.52 mg/dL (0.72-1.25); POTASSIUM 4.9 mmol/L (3.5-5.1)
[2019-11-30] MEDS: LACTATED RINGER'S 1,000 ML INJ SCH ×2 (06:32→16:50)
[2019-11-30] MEDS: EZETIMIBE 10 MG TAB PO SCH (08:49)
[2019-11-30] MEDS: ALFUZOSIN HCL 10 MG TAB.ER.24H PO SCH (08:49)
[2019-11-30] MEDS: LEVOFLOXACIN 750MG/D5W 150ML 150 ML IV SCH (08:49)
[2019-11-30] MEDS: ASPIRIN 81 MG CHEW TAB PO SCH (08:49)
[2019-11-30] MEDS: ALLOPURINOL 300 MG TAB PO SCH (08:49)
[2019-11-30] MEDS: FAMOTIDINE 20 MG/2 ML VIAL IV SCH ×2 (08:49→16:50)
--- NOTE | 2019-11-30 09:00 | NUR ---
Patient placed on CPAP per MD, Peep 5, Pressure support 8, FiO2 50%. No s/s distress noted from patient, tolerating well.
--- NOTE | 2019-11-30 09:39 | Progress Note ---
DATE: 11/30/2019 SUBJECTIVE: The patient's Levophed is at 60 mcg. He was evaluated by Infectious Disease and Nephrology yesterday. He received some additional fluids and was continued on his current antibiotics. He had about 700 mL of urine output last night. He was switched to CPAP and pressure support for a spontaneous breathing trial this morning. His Versed is now on hold. PHYSICAL EXAMINATION: VITAL SIGNS: Blood pressure is 116/57, on Levophed, heart rate is 104, and the patient is on a pressure support of 8 with a CPAP of 5. His FiO2 is set at 50%. He is breathing about 20 times a minute and his minute ventilation is 7. HEENT: Shows no facial swelling or erythema. He has a nasogastric tube in place. There is an oral endotracheal tube as well as an arterial line in place. CARDIAC: Reveals regular rate and rhythm. Normal S1 and S2. LUNGS: Auscultation of lungs shows decreased breath sounds at the bases. There is no wheezing. ABDOMEN: Soft and nontender. There is no rebound or guarding. EXTREMITIES: Show no leg edema or calf tenderness. There is no cyanosis or clubbing. SKIN: Shows no rashes. NEUROLOGICAL: Shows no focal abnormalities. LABORATORY DATA: BUN to creatinine ratio is 55 to 2.52, carbon dioxide is 16, and sodium is 130. The other electrolytes are within normal limits. The lactic acid are 2.6. The white blood cell count is 19.6, hemoglobin is 15.3, and the platelet count is 220. IMPRESSION: 1. Acute respiratory failure. 2. Anaphylactic shock. 3. Cellulitis of the right foot with sepsis, present on admission. 4. Diabetes. 5. Morbid obesity. 6. Acute renal failure. 7. Polycythemia. 8. Hypertension. PLAN: 1. Continue spontaneous breathing trial and repeat ABG. 2. Continue current antibiotics. 3. Continue to wean ventilator as tolerated and continue to wean Levophed. 4. Continue antihistamines and Pepcid. 5. Continue to monitor troponin. Cardiology believes the elevated troponin was secondary to demand insufficiency and hypotension. They are not recommending any repeat cardiac catheterization at this time. He had a cardiac catheterization several years ago, that was negative. 6. Continue DVT prophylaxis. 7. Enteral feedings. 8. Lasix as recommended by Nephrology. 9. Case discussed with nursing, administration, Infectious Disease, Cardiology, and . Greater than 35 minutes in direct critical care time. MD JULITA Cervantes/RICH /[id number]
[2019-11-30] MEDS ORDERED: INSULIN GLARGINE 100 UNITS/ML VIAL SQ ONE (10:15)
[2019-11-30 10:21] LABS: ABG HCO3 19 mmol/L (22-26); ABG PCO2 33 mmHg (35-45); ABG PH 7.37 (7.35-7.45); ABG PO2 129 mmHg (80-105); ABG TCO2 20
--- NOTE | 2019-11-30 10:27 | NUR ---
Dr Brower consulted at this time, spoke with Dr Gillette, no new orders received at this time.
[2019-11-30] MEDS: NOREPINEPHRINE 8 MG/D5W 250 ML 250 ML IV PRN (12:24)
--- NOTE | 2019-11-30 12:45 | Consultation ---
DATE OF CONSULTATION: 11/30/2019 HISTORY OF PRESENT ILLNESS: I was kindly asked to see this 64-year-old man for evaluation of possible upper airway obstruction due to angioedema. The patient apparently suffered a reaction to IV meropenem and subsequently had cardiac arrest, which necessitated CPR and intubation. The patient has clinically improved and there was concern over possible upper airway obstruction due to reaction from the IV antibiotics. PAST MEDICAL HISTORY: Reviewed in detail in chart and is pertinent for morbid obesity. PAST SURGICAL HISTORY: Noncontributory. PHYSICAL EXAMINATION: On examination, the external auditory canals and tympanic membranes are unremarkable bilaterally. He has a mild nasal septal deviation to the left. The mucosa within the nose is unremarkable. Oral cavity examination shows minimal candidiasis on the dorsum of the tongue. There is no elevation of the floor of the mouth. There is no edema of the soft palate. The posterior pharyngeal wall could not be visualized due to the obesity and presence of the endotracheal tube. There is no palpable cervical adenopathy on fiberoptic diagnostic laryngoscopy. Examination is limited due to the presence of the endotracheal tube, but there is no significant edema of the endolarynx seen on exam or the hypopharynx on examination. ASSESSMENT: No evidence of clinically significant angioedema of the larynx. PLAN: Cleared for extubation from otolaryngology standpoint. However, due to the presence of endotracheal tube still may be possible. There is significant airway collapse, which could not be visualized due to the presence of the tube and re-intubation may be required if he does not have adequate upper airway after extubation. MD WILBERTO Be/RICH /[id number]
[2019-11-30] MEDS ORDERED: FUROSEMIDE INJ 10 MG/ML 4 ML VIAL IV ONE (13:00)
[2019-11-30] MEDS: FUROSEMIDE INJ 100 MG in SODIUM CHLORIDE 0.9% 100 ML 90 ML IV SCH (13:14)
[2019-11-30] MEDS: DEXMEDETOMIDINE 200MCG/NS 50ML 50 ML IV PRN (13:25)
--- NOTE | 2019-11-30 13:30 | NUR ---
Patient to remain intubated at this time per Dr Charles related to concerns of laryngeal edema. Patient remains on CPAP, tolerating well, resp even and unlabored, no s/s distress noted at this time.
--- NOTE | 2019-11-30 17:50 | Progress Note ---
DATE: 11/30/2019 Renal Progress Note SUBJECTIVE: Events over the 24 hours have been noted. The patient remains on a ventilator. He does awaken, however, it looks like in the last 24 hours, his intake has been 4566 and output has been 1525. The urine total is 1525, but he has gotten considerable intake. PHYSICAL EXAMINATION: VITAL SIGNS: Blood pressure is 120/58, pulse 103, and respirations 16. GENERAL: The patient is morbidly obese. HEENT: No increased JVD. CARDIOVASCULAR: Regular rate and rhythm. LUNGS: Decreased breath sounds at bases bilaterally. ABDOMEN: Positive bowel sounds. EXTREMITIES: The patient's right leg is wrapped with Floyd wrap, there is not really any significant edema. LABORATORY RESULTS: Sodium 130; potassium 4.9; chloride 102; bicarbonate 16; BUN and creatinine 55 and 2.5, respectively; calcium 7.4; and albumin 2.9. His white count is 19.6 and hemoglobin and hematocrit of 15 and 45, respectively. Blood gas done today shows pH 7.37, pCO2 of 33, PO2 of 129, and bicarbonate of 19. IMPRESSION: 1. Acute kidney injury superimposed on probable chronic kidney disease. 2. Shock. 3. Hypotension. 4. Metabolic acidosis. 5. Foot wound. 6. Rule out sepsis. PLAN: The patient's urine output has increased yesterday, he was in the oliguric category, but now he is nonoliguric. He put out 1525 mL in the last 24 hours. He is getting IV fluids. I think he still needs IV fluids, I will continue this, but I will also schedule the Lasix 60 mg actually what I will probably give him 60 mg dose of Lasix now, and then we will start him on a Lasix drip at 5 mg an hour to promote continuing non-oliguria, but I still want to keep giving him lactated Ringer's also. At this time, I do not think he needs dialysis. I will continue to follow the patient. Ather MD LOTTIE Abraham/RICH /[id number]
--- NOTE | 2019-11-30 18:00 | NUR ---
Patient's HR noted to be in the 130's at this time. Dr Morin made aware, new orders received and carried out. Dr Charles made aware, new orders received and carried out.
[2019-11-30] MEDS: METOPROLOL TARTRATE 25 MG TAB PO SCH (18:42)
--- NOTE | 2019-11-30 18:45 | NUR ---
Report received. Assumed care. Assessment done. See interventions. Orally intubated with 7.5FR ETT secured @ 25cm at the lip. Vent settings: TV600, FIO2 50%, SIMV 12, PEEP 8cm, PS 12. OGT with Glucerna 1.2 @ 30ml/hr. IVs: LR @ 100ml/hr, Lasix @ 5mg/hr or 5ml/hr, Levophed @ 6mcg/min or 11.3ml/hr, & Precedex @ 0.1mcg/kg/hr or 4.6ml/hr. On rotating bed.
[2019-11-30] MEDS: INSULIN GLARGINE 100 UNITS/ML VIAL SQ SCH (21:05)
--- NOTE | 2019-11-30 21:07 | NUR ---
BP 77/49. Increased Levophed to 8mcg/min or 15ml/hr.
--- NOTE | 2019-11-30 21:41 | NUR ---
Dr. Ana Charles present and ordered 1mg Ativan IV now. Dose removed from [facility]is and wasted with Shayna Whitley RN, then dose given to pts nurse Zainab Jaimes RN for administration at the bedside.
[2019-11-30] MEDS: LORAZEPAM INJ 2 MG/ML VIAL IV PRN (21:45)
--- NOTE | 2019-11-30 21:45 | NUR ---
Dr. Charles here. Orders given. Ativan 1mg IV given.
[2019-11-30] MEDS ORDERED: LORAZEPAM INJ 2 MG/ML VIAL ONE (21:46)
[2019-12-01] VITALS (25 sets, daily range): BP systolic 95–156; BP diastolic 48–73
[2019-12-01] MEDS: INSULIN LISPRO 100 UNIT/1 ML 3ML VIAL SQ SCH ×4 (00:01→17:49)
[2019-12-01] MEDS: DEXMEDETOMIDINE 200MCG/NS 50ML 50 ML IV PRN ×2 (01:04→04:49)
[2019-12-01] MEDS: LINEZOLID 600 MG/D5W 300ML 300 ML IV SCH ×2 (01:12→12:14)
[2019-12-01] MEDS: ENOXAPARIN SOD INJ 40 MG/0.4 ML SYR SC SCH (01:57)
[2019-12-01] MEDS ORDERED: LACTATED RINGER'S 1,000 ML ONE (03:44)
[2019-12-01] MEDS: LACTATED RINGER'S 1,000 ML INJ SCH (03:50)
--- NOTE | 2019-12-01 03:51 | NUR ---
Lactated Ringers hung at this time. It had dropped off the EMAR but per Dr. Abraham's progress note, he wants to continue.
--- NOTE | 2019-12-01 03:56 | NUR ---
Partial bath given. Partial linens changed.
[2019-12-01] MEDS: LORAZEPAM INJ 2 MG/ML VIAL IV PRN (04:15)
[2019-12-01 05:22] LABS: BASOPHILS % 0.1 % (0.0-1.0); EOSINOPHILS # (AUTO) 0.1 (0.0-0.4); EOSINOPHILS % 0.4 % (0.0-6.0); HEMOGLOBIN 14.5 g/dL (14.0-18.0); LYMPHOCYTES # (AUTO) 1.4 (1.0-3.2); LYMPHOCYTES % 7.5 % (18.0-39.1); MEAN CORPUSCULAR HEMOGLOBIN 29.5 pg (28-32); MEAN CORPUSCULAR VOLUME 89.4 fL (81-99); MONOCYTES # (AUTO) 1.2 (0.2-0.8); MONOCYTES % 6.6 % (4.4-11.3); NEUTROPHILS # (AUTO) 15.3 (2.1-6.9); NEUTROPHILS % 84.6 % (38.7-80.0); PLATELET COUNT 205 x10e3/uL (140-360); RED BLOOD COUNT 4.92 x10e6/uL (4.3-5.7); RED CELL DISTRIBUTION WIDTH 16.2 % (11.7-14.4)
[2019-12-01 05:45] LABS: ALBUMIN 3.1 g/dL (3.5-5.0); ALBUMIN/GLOBULIN RATIO 0.9 (0.8-2.0); CALCIUM 7.5 mg/dL (8.4-10.2); CREATININE, SERUM 2.39 mg/dL (0.72-1.25)
[2019-12-01] MEDS: METOPROLOL TARTRATE 25 MG TAB PO SCH ×4 (05:55→16:34)
[2019-12-01] MEDS: NOREPINEPHRINE 8 MG/D5W 250 ML 250 ML IV PRN (06:24)
[2019-12-01 07:51] LABS: ABG HCO3 25 mmol/L (22-26); ABG PCO2 40 mmHg (35-45); ABG PH 7.41 (7.35-7.45); ABG PO2 168 mmHg (80-105); ABG TCO2 27
[2019-12-01] MEDS: FAMOTIDINE 20 MG/2 ML VIAL IV SCH ×2 (07:56→17:04)
--- NOTE | 2019-12-01 08:00 | NUR ---
EXTUBATED PATIENT TO NC AT 4 L. O2 SAT AT 96%
[2019-12-01] MEDS: LEVOFLOXACIN 750MG/D5W 150ML 150 ML IV SCH (08:02)
--- NOTE | 2019-12-01 08:08 | Progress Note ---
DATE: 12/01/2019 PULMONARY CRITICAL CARE PROGRESS NOTE: SUBJECTIVE: The patient was evaluated by ENT yesterday. He had a direct laryngoscopy. He has remained on Precedex and low-dose Ativan overnight. This morning, all his sedation was held and he was switched to a spontaneous breathing trial with a pressure support of 8 and a CPAP of 5. He is tolerating this well with respiratory rate of 14 and tidal volumes of 600. He remains on a Lasix drip. His Levophed is decreased to 4 mcg. PHYSICAL EXAMINATION: VITAL SIGNS: Blood pressure is 103/52, saturation is 97%. He is on a pressure support of 8 with a CPAP of 5. HEENT: Shows no facial swelling or erythema. There is an oral endotracheal tube. LYMPHATIC: Shows no submandibular, cervical, or supraclavicular adenopathy. There is a right IJ line. The site looks clean. CARDIAC: Reveals regular rate and rhythm with normal S1 and S2. LUNGS: Auscultation of lungs reveals crackles at the bases. There is no wheezing. ABDOMEN: Soft and nontender. There is no rebound or guarding. EXTREMITIES: Shows no leg edema or calf tenderness. There is no cyanosis or clubbing. SKIN: Shows no rashes. NEUROLOGICAL: Shows the patient to be arousable and responding to commands. LABORATORY DATA: White blood cell count is 18.1, hemoglobin is 14.5, and the platelet count is 205,000. The RMN-jn-killkhrwax ratio is 58 to 2.39, which is slightly improved from yesterday. His sodium is 133 and his potassium is 5. The chloride is 100 and carbon dioxide is 22. Albumin is 3.1. IMPRESSION: 1. Acute respiratory failure. 2. Anaphylactic shock. 3. Cellulitis of the right foot with sepsis, present on admission. 4. Acute renal failure. 5. Diabetes. 6. Morbid obesity. PLAN: 1. Continue spontaneous breathing trial and repeat ABG. 2. Plan for extubation today. 3. Continue to wean off Levophed. 4. Continue Lasix drip and monitoring of creatinine. 5. Enteral feedings are on hold for probable extubation. Greater than 35 minutes in direct critical care time. Je Charles MD [facility]/RICH /[id number]
--- NOTE | 2019-12-01 08:22 | Diagnostic Imaging Report ---
Chest, 1 view, 12/01/2019. History: Intubated. Comparison: 11/29/2019. Findings: The cardiomediastinal silhouette and pulmonary vasculature are prominent with hazy bilateral perihilar and bibasilar opacities which have increased, now obscuring both hemidiaphragms. ET tube, NG tube, and right IJ central line are unchanged in position There are no acute osseous or soft tissue abnormalities. Impression: Increased bilateral pulmonary opacities may represent worsening edema or pneumonia. Signed by: Chan Meehan on 12/01/2019 8:18 AM
[2019-12-01] MEDS: EZETIMIBE 10 MG TAB PO SCH (09:00)
[2019-12-01] MEDS: ASPIRIN 81 MG CHEW TAB PO SCH (09:00)
[2019-12-01] MEDS: ALLOPURINOL 300 MG TAB PO SCH (09:00)
[2019-12-01] MEDS: ALFUZOSIN HCL 10 MG TAB.ER.24H PO SCH (09:00)
[2019-12-01 09:21] LABS: ABG HCO3 27 mmol/L (22-26); ABG PCO2 44 mmHg (35-45); ABG PH 7.39 (7.35-7.45); ABG PO2 140 mmHg (80-105); ABG TCO2 28
[2019-12-01] MEDS: FUROSEMIDE INJ 100 MG in SODIUM CHLORIDE 0.9% 100 ML 90 ML IV SCH (09:53)
--- NOTE | 2019-12-01 14:34 | Progress Note ---
DATE: 12/01/2019 Renal Progress Note. SUBJECTIVE: Events over the past 24 hours have been noted. The patient has been extubated. He is on nasal cannula, 4 L of oxygen. PHYSICAL EXAMINATION: VITAL SIGNS: Blood pressure 116/55, pulse is 63. GENERAL: In no acute distress. He is morbidly obese. HEENT: No increased JVD. CARDIOVASCULAR: Regular rate and rhythm. LUNGS: Decreased breath sounds at bases bilaterally. ABDOMEN: Positive bowel sounds. No tenderness. EXTREMITIES: The patient's right leg is wrapped with Floyd wrap. There is some mild edema. LABORATORY REPORTS: Sodium 133, potassium 5, chloride 100, bicarb 22, BUN and creatinine 58 and 2.4 respectively, calcium 7.5, albumin 3.1. White count is 18, hemoglobin and hematocrit 14 and 44, and platelets are 205. IMPRESSION: 1. Acute kidney injury, superimposed on probable chronic kidney disease. 2. Shock. 3. Hypotension. 4. Metabolic acidosis, essentially resolved. 5. Foot wound. 6. Rule out sepsis. PLAN: The patient's blood cultures are negative. His wound did grow Pseudomonas aeruginosa. In the last 24-hours, he has put out about 6 L of urine output. He is negative 2.6 L in fluid balance. He is on a Lasix drip 5 mg an hour. I think I will go ahead and continue the Lasix drip at least for another 24 hours. He is on lactated Ringer's also. I will continue that as well. I will probably not make any change at this time. We will continue to follow the patient with you. Ather MD LOTTIE Abraham/RICH /[id number]
[2019-12-01] MEDS: INSULIN GLARGINE 100 UNITS/ML VIAL SQ SCH (21:00)
[2019-12-02] VITALS (23 sets, daily range): BP systolic 107–138; BP diastolic 47–59
[2019-12-02] MEDS: LINEZOLID 600 MG/D5W 300ML 300 ML IV SCH ×2 (01:00→13:38)
[2019-12-02] MEDS: ENOXAPARIN SOD INJ 40 MG/0.4 ML SYR SC SCH (02:15)
[2019-12-02] MEDS: INSULIN LISPRO 100 UNIT/1 ML 3ML VIAL SQ SCH ×5 (06:00→21:00)
[2019-12-02] MEDS: METOPROLOL TARTRATE 25 MG TAB PO SCH ×4 (06:00→18:22)
[2019-12-02 07:20] LABS: ANION GAP 15.4 mmol/L (8-16); CALCIUM 7.9 mg/dL (8.4-10.2); CREATININE, SERUM 2.1 mg/dL (0.72-1.25); POTASSIUM 4.4 mmol/L (3.5-5.1)
[2019-12-02] MEDS: LEVOFLOXACIN 750MG/D5W 150ML 150 ML IV SCH (08:03)
[2019-12-02] MEDS: ASPIRIN 81 MG CHEW TAB PO SCH (08:03)
[2019-12-02] MEDS: ALFUZOSIN HCL 10 MG TAB.ER.24H PO SCH (08:03)
[2019-12-02] MEDS: EZETIMIBE 10 MG TAB PO SCH (08:03)
[2019-12-02] MEDS: FAMOTIDINE 20 MG/2 ML VIAL IV SCH ×2 (08:03→17:04)
[2019-12-02] MEDS: ALLOPURINOL 300 MG TAB PO SCH (08:03)
[2019-12-02] MEDS: BALSAM PERU/CASTOR OIL 60 GM OINT...G. TP SCH (08:04)
--- NOTE | 2019-12-02 08:07 | NUR ---
PATIENT SWALLOWED MORNING MEDICATION WITH GLUCERNA SHAKE WITHOUT DIFFICULTY
[2019-12-02 08:34] LABS: BASOPHILS % 0.2 % (0.0-1.0); EOSINOPHILS # (AUTO) 0.3 (0.0-0.4); EOSINOPHILS % 2.8 % (0.0-6.0); HEMATOCRIT 43.9 % (38.2-49.6); HEMOGLOBIN 14.4 g/dL (14.0-18.0); LYMPHOCYTES # (AUTO) 2.1 (1.0-3.2); LYMPHOCYTES % 17.1 % (18.0-39.1); MEAN CORPUSCULAR HEMOGLOBIN 30.3 pg (28-32); MEAN CORPUSCULAR HGB CONC 32.8 g/dL (31-35); MEAN CORPUSCULAR VOLUME 92.2 fL (81-99); MONOCYTES # (AUTO) 0.9 (0.2-0.8); MONOCYTES % 7.2 % (4.4-11.3); NEUTROPHILS # (AUTO) 8.7 (2.1-6.9); PLATELET COUNT 185 x10e3/uL (140-360); RED BLOOD COUNT 4.76 x10e6/uL (4.3-5.7); RED CELL DISTRIBUTION WIDTH 16.1 % (11.7-14.4)
--- NOTE | 2019-12-02 08:54 | Progress Note ---
DATE: 12/02/2019 SUBJECTIVE: The patient was extubated yesterday. He is awake and interacting normally, but he cannot remember the days that he was intubated. He is urinating well. PHYSICAL EXAMINATION: VITAL SIGNS: The patient is afebrile, blood pressure is 133/60, saturation is 98% on 4 L, and pulse is 77. HEENT: Shows no facial swelling or erythema. LYMPHATIC: Shows no submandibular, cervical, or supraclavicular adenopathy. CARDIAC: Reveals regular rate and rhythm with normal S1 and S2. LUNGS: Auscultation of lungs show decreased breath sounds at the bases. There is no wheezing. ABDOMEN: Soft and nontender. There is no rebound or guarding. EXTREMITIES: Show no leg edema or calf tenderness. There is no cyanosis or clubbing. SKIN: Shows no rashes. NEUROLOGICAL: Shows no focal abnormalities. LABORATORY DATA: BUN to creatinine ratio is 59 to 2.1. Other electrolytes are within normal limits. IMPRESSION: 1. Acute respiratory failure. 2. Anaphylactic shock. 3. Cellulitis of the right foot with sepsis, present on admission. 4. Acute renal failure. 5. Diabetes. 6. Morbid obesity. PLAN: 1. Continue to monitor renal function and urine output. 2. Continue current antibiotics. 3. Possible transfer out of intensive care unit today. Je Charles MD [facility]/MODL /[id number]
[2019-12-02] MEDS: FUROSEMIDE INJ 100 MG in SODIUM CHLORIDE 0.9% 100 ML 90 ML IV SCH (09:26)
--- NOTE | 2019-12-02 11:00 | NUR ---
PHYSICAL THERAPY EVAL DONE. PATIENT TOLERATED WELL. RECOMMENDATION IS INPATIENT PT
--- NOTE | 2019-12-02 12:03 | Progress Note ---
DATE: 12/02/2019 SUBJECTIVE: The patient was seen at bedside. He is extubated. He is responding well. He says he is alert and oriented. He says he does not remember from the point where he was admitted to the point where he was extubated. PHYSICAL EXAMINATION: LOWER EXTREMITIES: The erythema and edema are resolving. The bulla is decreasing. The area is healing well. There is no streaking erythema. No ascending lymphangitis. Pedal pulses are palpable. Protective threshold is decreased. Intrinsic minus type of foot. ASSESSMENT: 1. Cellulitis bilaterally, right worse than the left. 2. Diabetic foot ulcer, grade 2, healing. 3. Status post extubation secondary to possible anaphylactic reaction to meropenem. PLAN: Discussed treatment with the patient. At this point, I agree with local wound care. He is getting IV antibiotic. The wound is responding well to treatment. We will continue to follow. TRANG Hughes/RICH /[id number]
[2019-12-02] MEDS: INSULIN GLARGINE 100 UNITS/ML VIAL SQ SCH (21:00)
--- NOTE | 2019-12-02 21:00 | Progress Note ---
DATE: 12/02/2019 Renal Progress Note SUBJECTIVE: The patient is awake. He is alert and oriented. Intake and output in the last 24 hours, the patient has had 1390 in and 7000 out. His fluid balance is -5610. PHYSICAL EXAMINATION: VITAL SIGNS: Blood pressure 120/54, pulse 79, respirations 16. GENERAL: The patient is morbidly obese. HEENT: No increased JVD. CARDIOVASCULAR: Regular rate and rhythm. LUNGS: Decreased breath sounds at the bases bilaterally. ABDOMEN: Positive bowel sounds. Nontender, nondistended. EXTREMITIES: The patient does have trace edema of the legs. His left leg is wrapped with Floyd wraps. LABORATORY RESULTS: White count is 12,000, hemoglobin and hematocrit 14 and 44, platelets are 185,000. Chemistry with sodium 136, potassium 4.4, chloride 98, bicarbonate is 27, BUN and creatinine 59 and 2.1 respectively. Blood cultures negative so far. IMPRESSION: 1. Acute kidney injury, superimposed on probable chronic kidney disease. 2. Shock. 3. Hypotension. 4. Metabolic acidosis, essentially resolved. 5. Foot wound. 6. Rule out sepsis. PLAN: The patient's blood culture is negative. The urine output is very good. He is in a -5 L of fluid balance. Chest x-ray shows some increase in bilateral pulmonary opacities which could be edema or pneumonia. Lactated Ringer has run out. I will not renew it. I will stop the Lasix drip and I will put him on Lasix maybe 40 mg IV every 24 hours. I do not want to give him any more fluids as this may cause some pulmonary congestion and I will significantly decrease the Lasix drip since I do not want him to become more azotemic. Ather MD LOTTIE Abraham/RICH /[id number]
--- NOTE | 2019-12-02 22:21 | NUR ---
transferred to [facility] stable
[2019-12-03] VITALS (8 sets, daily range): BP systolic 112–126; BP diastolic 54–64
[2019-12-03] MEDS: METOPROLOL TARTRATE 25 MG TAB PO SCH ×4 (00:11→17:53)
[2019-12-03] MEDS: ENOXAPARIN SOD INJ 40 MG/0.4 ML SYR SC SCH (01:19)
[2019-12-03] MEDS: INSULIN LISPRO 100 UNIT/1 ML 3ML VIAL SQ SCH ×4 (07:30→21:04)
[2019-12-03] MEDS ORDERED: FUROSEMIDE INJ 10 MG/ML 4 ML VIAL IV SCH (09:00)
[2019-12-03] MEDS ORDERED: MAGNESIUM HYDROXIDE 30 ML UDC PO PRN (09:15)
[2019-12-03] MEDS ORDERED: BISACODYL 10 MG SUPP PR PRN (09:15)
[2019-12-03] MEDS ORDERED: BISACODYL 5 MG TAB EC PO ONE (09:15)
[2019-12-03] MEDS: FAMOTIDINE 20 MG/2 ML VIAL IV SCH (09:39)
[2019-12-03] MEDS: LEVOFLOXACIN 750MG/D5W 150ML 150 ML IV SCH (09:39)
[2019-12-03] MEDS: SENNOSIDES 8.6 MG TAB PO SCH ×2 (09:40→17:00)
[2019-12-03] MEDS: ASPIRIN 81 MG CHEW TAB PO SCH (09:40)
[2019-12-03] MEDS: ALFUZOSIN HCL 10 MG TAB.ER.24H PO SCH (09:40)
[2019-12-03] MEDS: BALSAM PERU/CASTOR OIL 60 GM OINT...G. TP SCH (09:40)
[2019-12-03] MEDS: ALLOPURINOL 300 MG TAB PO SCH (09:40)
[2019-12-03] MEDS: EZETIMIBE 10 MG TAB PO SCH (09:43)
--- NOTE | 2019-12-03 12:04 | Progress Note ---
DATE: 12/03/2019 SUBJECTIVE: The patient feels better. He is able to stand up. His creatinine is improving. He does not complain of foot pain. PHYSICAL EXAMINATION: VITAL SIGNS: Blood pressure is 112/54, saturation is 94% on 3 L, pulse is 68. HEENT: Shows no facial swelling or erythema. LYMPHATIC: Shows no submandibular, cervical, supraclavicular adenopathy. CARDIAC: Reveals a regular rate and rhythm with normal S1, S2. LUNGS: Auscultation of lungs reveals crackles and rhonchi bilaterally. There is no wheezing. ABDOMEN: Soft and nontender. There is no rebound or guarding. EXTREMITIES: Shows no leg edema or calf tenderness. There is some erythema in his foot. IMPRESSION: 1. Acute renal failure. 2. Anaphylactic shock, laryngeal edema. 3. Acute respiratory failure that has resolved. 4. Sepsis of the right foot, present on admission. 5. Diabetes. 6. Morbid obesity. PLAN: 1. Remove of Elam. 2. Continue to monitor renal function and urine output. 3. Complete current antibiotics. 4. Remove central line. Je Charles MD [facility]/MODL /[id number]
--- NOTE | 2019-12-03 16:15 | Progress Note ---
DATE: 12/03/2019 RENAL PROGRESS NOTE: SUBJECTIVE: Events of the past 24 hours have been noted. Intake and output for the last 24 hours; intake has been 840, output has been 4600 with a fluid balance of -760. PHYSICAL EXAMINATION: VITAL SIGNS: Blood pressure 130/54, pulse 74. GENERAL: The patient is morbidly obese. HEENT: No increased JVD. CARDIOVASCULAR: Regular rate and rhythm. LUNGS: Decreased breath sounds at the bases bilaterally. ABDOMEN: Morbidly obese. Positive bowel sounds. EXTREMITIES: The patient has some edema of the legs. He has his right foot wrapped. LABORATORY RESULTS: I do not see any laboratory results from today. IMPRESSION: 1. Acute kidney injury superimposed on chronic kidney disease. 2. Shock. 3. Hypertension. 4. Metabolic acidosis, resolved. 5. Foot wound. 6. Rule out sepsis. PLAN: The patient's urine output is very good. He is still in negative 4 L fluid balance. His IV fluids have been stopped. He is on Lasix 40 mg IV once a day. I think I will go ahead and just change the Lasix to p.o. There are no labs from today. We will check labs again tomorrow. Ather MD LOTTIE Abraham/RICH /[id number]
[2019-12-03] MEDS: INSULIN GLARGINE 100 UNITS/ML VIAL SQ SCH (21:05)
[2019-12-04] VITALS (8 sets, daily range): BP systolic 109–135; BP diastolic 52–67
[2019-12-04] MEDS: METOPROLOL TARTRATE 25 MG TAB PO SCH ×3 (00:30→16:37)
[2019-12-04] MEDS: ENOXAPARIN SOD INJ 40 MG/0.4 ML SYR SC SCH (01:55)
[2019-12-04 05:39] LABS: ANION GAP 17.1 mmol/L (8-16); CALCIUM 8.8 mg/dL (8.4-10.2); CREATININE, SERUM 1.87 mg/dL (0.72-1.25); POTASSIUM 4.1 mmol/L (3.5-5.1)
[2019-12-04] MEDS: INSULIN LISPRO 100 UNIT/1 ML 3ML VIAL SQ SCH ×4 (07:30→20:48)
[2019-12-04] MEDS: EZETIMIBE 10 MG TAB PO SCH (08:22)
[2019-12-04] MEDS: ASPIRIN 81 MG CHEW TAB PO SCH (08:22)
[2019-12-04] MEDS: FUROSEMIDE 40 MG TAB PO SCH (08:22)
[2019-12-04] MEDS: ALLOPURINOL 300 MG TAB PO SCH (08:22)
[2019-12-04] MEDS: ALFUZOSIN HCL 10 MG TAB.ER.24H PO SCH (08:22)
[2019-12-04] MEDS: BALSAM PERU/CASTOR OIL 60 GM OINT...G. TP SCH (08:22)
[2019-12-04] MEDS: SENNOSIDES 8.6 MG TAB PO SCH ×2 (09:00→16:37)
[2019-12-04] MEDS ORDERED: LEVOFLOXACIN 750MG/D5W 150ML 150 ML IV SCH (09:15)
--- NOTE | 2019-12-04 12:50 | Progress Note ---
DATE: 12/04/2019 Renal progress note. SUBJECTIVE: Events of the past 24 hours have been noted. No chest pain. No shortness of breath. The patient had a Elam placed and 1000 mL were yielded. PHYSICAL EXAMINATION: VITAL SIGNS: Blood pressure 112/54, pulse 71. GENERAL: The patient is in no acute distress. The patient is obese. HEENT: No increased JVD. CARDIOVASCULAR: Regular rhythm. LUNGS: Decreased breath sounds at bases bilaterally. ABDOMEN: Morbidly obese. Positive bowel sounds. EXTREMITIES: The patient has some edema of the legs. He has right foot wrapped. LABORATORY RESULTS: White count is 12.5, hemoglobin is 14, sodium 137, potassium 4.1, chloride 98, bicarbonate 26, BUN and creatinine 65 and 1.8 respectively. Uric acid 8.1. IMPRESSION: 1. Acute kidney injury superimposed on chronic kidney disease. 2. Shock. 3. Hypotension. 4. Metabolic acidosis, resolved. 5. Foot wound. PLAN: The patient had a Elam placed and yielded 1000 mL. He does have some urinary retention. Urology is going to be following him. His uric acid is somewhat elevated, even though he is on allopurinol. I have counseled the patient about proper low purine diet. Lasix dose has been changed from IV to p.o. I will continue this. His renal function is improving. We will check labs again tomorrow. Ather MD LOTTIE Abraham/RICH /[id number]
--- NOTE | 2019-12-04 16:06 | NUR ---
SPOKE WITH PATIENT ABOUT CHOICE, HE ASKED FOR INFORMATION ABOUT FACILITIES, PRINTED AND WILL FOLLOW UP IN MORNING TO GET CHOICE AFTER HE SPEAKS WITH .
--- NOTE | 2019-12-04 16:09 | NUR ---
Follow up Note RD Recommendation(s) for Physician: -Recommend ADA diet -Continue Glucerna nutrition supplement as needed Plan of Care: RD following, monitoring for tolerance and adequacy Nutrition reason for involvement: follow up RD Assessment 12/03: Follow up. Pt is no longer intubated and is on an oral diet. Pt reports he is eating about 50% of his meals. Pt was unsure of any weight changes and stated he usually weighs 400 lbs. No N/V or chewing/swallowing issues. Pt is also ordered Glucerna with meals. Pt declined the need for diet education. Will continue to monitor. 11/28 64 yo morbidly obese M, who was admitted to [facility] for right foot cellulitis. Code alyse was called yesterday due to acute respiratory failure. Pt was subsequently intubated and ventilated. OGT has been placed; TF has not started during my time of visit. Pt was on Levophed @10mcg/min. Principal Problems/Diagnoses: 1. Acute respiratory failure. 2. Laryngeal and upper airway edema visualized at the time of intubation. 3. Cellulitis of the right foot with sepsis, present on admission. PMH: 1. Type 2 diabetes requiring oral medications as an outpatient. 2. Bilateral lower extremity lymphedema. 3. Chronic ulcer on the dorsal surface medially in the right foot with associated cellulitis. 4. Hypertension. 5. History of gout. I/O: reviewed GI: soft/round abdomen. BM not recorded Skin: R foot wound Labs: 12/03: Na 137, K 4.1, BUN 65, Cr 1.87, Glu 124, Ca 8.8 (11/28) Na 135 L, BUN 35 H, Creatinine 1.88 H, GFR 36 L, POC glucose 288 H, Ca 7.7 L, AST 52 H, Meds: milk of magnesia, lasix, insulin, dulcolax, metoprolol Ht: 73in Wt: 400lb BMI: 52.8kg/m2 IBW: 184lb +/- 10% Malnutrition Evaluation (11/29/19) The patient does not meet criteria for a specified degree of malnutrition at this time. Will re-evaluate at follow-up as appropriate. Nutrition Prescription (Diet Order): renal/1800 ADA diet Estimated Nutritional Needs: Calories: 1848 2100kcal (22-25kcal/kg IBW) Protein : 168 210g (2-2.5g/kg IBW) Diet Adequacy: Not meeting calorie needs, Not meeting protein needs Tolerance: Tolerance PO Diet Education Needs Assessment: Pt declined the need for diet education Nutrition Care Level: moderate Nutrition Diagnosis: Overweight/Obesity related to predicted h/o excessive energy intake compared to needs as evidenced by BMI >30 Goal: Patient will meet 75-100% of estimated needs by follow up Progress: progressing Interventions: Carbohydrate modified diet, Commercial beverage Monitoring/Evaluation: Total energy intake, Total protein intake, liquid supplement. Weight change Signed: Eusebia Crabtree, [place], LD
[2019-12-04] MEDS: INSULIN GLARGINE 100 UNITS/ML VIAL SQ SCH (20:48)
[2019-12-04] MEDS: ONDANSETRON HCL INJ 2MG/ML 2ML 2 MG/ML VIAL IV PRN (22:31)
[2019-12-04] MEDS: BISACODYL 5 MG TAB EC PO PRN (23:50)
[2019-12-05] VITALS: BP 126/64
[2019-12-05] MEDS: ENOXAPARIN SOD INJ 40 MG/0.4 ML SYR SC SCH (03:30)
[2019-12-05 04:00] VITALS: BP 157/66
[2019-12-05 07:00] VITALS: BP 123/63
[2019-12-05] MEDS: INSULIN LISPRO 100 UNIT/1 ML 3ML VIAL SQ SCH ×2 (07:30→12:00)
[2019-12-05] MEDS: FUROSEMIDE 40 MG TAB PO SCH (08:33)
[2019-12-05] MEDS: ASPIRIN 81 MG CHEW TAB PO SCH (08:33)
[2019-12-05] MEDS: ALFUZOSIN HCL 10 MG TAB.ER.24H PO SCH (08:33)
[2019-12-05] MEDS: ALLOPURINOL 300 MG TAB PO SCH (08:34)
[2019-12-05] MEDS: EZETIMIBE 10 MG TAB PO SCH (08:34)
[2019-12-05] MEDS: SENNOSIDES 8.6 MG TAB PO SCH ×2 (08:34→18:18)
[2019-12-05] MEDS: METOPROLOL TARTRATE 25 MG TAB PO SCH ×2 (08:34→18:18)
[2019-12-05] MEDS: BALSAM PERU/CASTOR OIL 60 GM OINT...G. TP SCH (08:34)
[2019-12-05] MEDS ORDERED: LEVOFLOXACIN 500 MG TAB PO SCH (09:00)
[2019-12-05 09:12] VITALS: BP 123/48
--- NOTE | 2019-12-05 09:15 | NUR ---
SPOKE WITH PT OBTAINED CHOICE FOR [facility] IN [place], FILED IN CHART AND FAXED CLINICALS TO FACILITY. ALERTED REP CLINICALS ON WAY.
[2019-12-05 10:53] LABS: ANION GAP 18.3 mmol/L (8-16); CALCIUM 8.9 mg/dL (8.4-10.2); CREATININE, SERUM 1.74 mg/dL (0.72-1.25); POTASSIUM 4.3 mmol/L (3.5-5.1)
[2019-12-05] MEDS: BISACODYL 5 MG TAB EC PO PRN (12:14)
[2019-12-05] MEDS: ONDANSETRON HCL INJ 2MG/ML 2ML 2 MG/ML VIAL IV PRN (12:14)
--- NOTE | 2019-12-05 12:30 | NUR ---
INPATIENT REHAB FACILITY DISCHARGE INFORMATION PATIENT HAS BEEN ACCEPTED TO: NAME: [facility] ADDRESS:[address] [facility] ACCEPTING SUCTION ROLLER:JEANNA JIANG CLINICAL LAB SPECIALIST ACCEPTING MD:LARISSA LUNDBERG ROOM:GIVE WHEN CALL REPORT NURSE CALL REPORT TO: [phone] THE FOLLOWING DOCUMENTS MUST ACCOMPANY PATIENT FOR TRANSFER: COPIED CHART: PACKET GIVEN TO NURSE
[2019-12-05] MEDS ORDERED: ONDANSETRON HCL 4 MG ORAL DISINTEGRATING TAB PO PRN (16:00)
--- NOTE | 2019-12-05 18:10 | Progress Note ---
DATE: 12/05/2019 Renal Progress Note SUBJECTIVE: Events over the past 24 hours were noted. No chest pain. No shortness of breath. PHYSICAL EXAMINATION: VITAL SIGNS: Blood pressure , pulse 69, respiration 18. The patient's intake and output 120 in and out. GENERAL: The patient is in no acute distress. The patient is obese. HEENT: No increased JVD. CARDIOVASCULAR: Regular rate and rhythm. LUNGS: Decreased breath sounds at the bases bilaterally. ABDOMEN: Morbidly obese. Positive bowel sounds. EXTREMITIES: The patient has some edema of the legs. The right foot is wrapped. LABORATORY RESULTS: Sodium 137, potassium 4.3, chloride 98, bicarb 25, BUN and creatinine 61 and 1.74 respectively. Calcium is 8.9. IMPRESSION: 1. Acute kidney injury superimposed on chronic kidney disease. 2. Shock, resolved. 3. Hypotension, resolved. 4. Metabolic acidosis, resolved. 5. Foot wound. PLAN: The patient's renal function is continuing to improve. Urology is following the patient for his urinary retention. The patient is on Lasix 40 mg p.o. once a day. Continue present management. Ather MD LOTTIE Abraham/RICH /[id number]
--- NOTE | 2019-12-10 20:46 | Discharge Summary ---
CONSULTANTS: 1. Dr. Ole Price. 2. Dr. Roscoe Perez. 3. Dr. Je Charles. 4. Dr. Oskar Rod. 5. Dr. Saundra Morin. FINAL DIAGNOSES: 1. Status post cardiopulmonary arrest secondary to anaphylactic shock and respiratory failure from allergic reaction to meropenem, antibiotics. 2. Angioedema of the throat with airway obstruction resulting in the above. 3. Baseline right foot infected diabetic foot ulcer. 4. Baseline diabetes type 2 with medication treatment. 5. Baseline morbid obesity, hypertension, obstructive sleep apnea. HOSPITAL COURSE: The patient is a 64-year-old male with nonhealing right foot, diabetic foot ulcer associated with Pseudomonas infection. The [facility] by Dr. Roscoe Perez, Infectious Disease. The patient was admitted and plan for the patient to have IV antibiotic, meropenem. The patient was otherwise stable. On the first dose of meropenem, the patient went into respiratory complication with subsequent angioedema and not feeling well and was unable to breathe. The patient on subsequent intubation due to his respiratory compromise secondary to angioedema of the throat area. The patient was given racemic epinephrine and also subsequent nebulizer treatments and intubated. The patient transferred to ICU, consultation with Dr. Je Charles. The patient continued to improve with steroids. His swelling was better. His oxygen saturation improved and subsequent weaning off the ventilator support. The patient was also subsequent seen by ENT, Dr. Andrei Brower with scope to make sure that his angioedema improved and subsequently the patient was extubated. The patient was better. He had a prolonged hospitalization and immobility due to his condition. He was transferred out of the ICU. In the meantime, continue with antibiotic treatment for his right foot. His right foot much improved with adjustment of his antibiotic including Zyvox and Levaquin. The patient was better. He subsequently again extubated and transferred out of the ICU and received physical therapy. His mentation is back to baseline. There was no complication with respect to his mental status from the anaphylactic shock and angioedema with cough, respiratory failure, ended up on the ventilator support. The patient was stable. Transferred out of ICU and he continued with physical therapy, antibiotics. Because of his condition, he was appropriate for acute rehab. Given choice, the patient picked [facility] rehab. The patient was approved and subsequently transferred to the facility for continue with antibiotic or Levaquin and also wound care and physical therapy, rehab aggressively to get the patient back to his baseline. The patient was stable. Continue with treatment and the patient upon discharge from the acute rehab facility recommended for the patient to follow up with his Infectious Disease, Dr. 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 The patient was otherwise stable. Discharge medication reconciliation was done and the patient will continue to be followed closely. Of note, with respect to his urinary retention, BPH the patient had a Elam catheter in place. The patient is to follow up with Dr. Prasanna Perdomo and continue with his Elam care if needed. If the patient was otherwise stable he will be followed by Dr. Prasanna Perdomo and Dr. Osakr Rod at [facility]. MD DONAVAN Ko/RICH /[id number]
== END 2019-12-05 19:04 | DRG 871 ==
LOC: MED/SURG2 13:46 → ICU 23:41 → IMCU 12-02 22:15
PROVIDERS: ADMIT Internal Medicine; ATTEND Internal Medicine
PROC: 5A09459 Assistance with Respiratory Ventilation, 24-96 Consecutive Hours, Continuous Negative Airway Pressure (ICD-10-PCS; principal; 2019-11-28)
DX: A41.9 Sepsis, unspecified organism (principal); J96.00 Acute respiratory failure, unspecified whether with hypoxia or hypercapnia; I46.9 Cardiac arrest, cause unspecified; I21.A1 Myocardial infarction type 2; Z68.43 Body mass index [BMI] 50.0-59.9, adult; E11.621 Type 2 diabetes mellitus with foot ulcer
CPT/HCPCS: 31500; 36415; 36600; 71045; 76770; 80048; 80053; 81001; 82040; 82550; 82553; 82805; 82948; 83605; 83880; 84484; 84550; 85025; 85610; 85730; 87040; 87071; 87075; 87186; 87205; 92950; 93005; 93041; 93306; 93970; 94002; 94003; 96372; 97139; 99251; J0171; J0330; J1200; J1650; J1815; J1940; J2020; J2060; J2250; J2405; J2930; J7030; J7050; J7121; P9047

== ENCOUNTER 2019-11-28 14:06 | Outpatient (RCR) | payer MEDICARE, OTHER ==
[~2019-11-28 14:06] MED LIST changes: +NYSTATIN 100,000 UNITS/GM CRM 30GM TUBE ONE
[2019-11-28] MEDS ORDERED: FEOSOL45 MG PO (14:32)
--- NOTE | 2019-11-30 12:45 | Consultation ---
DATE OF CONSULTATION: 11/30/2019 HISTORY OF PRESENT ILLNESS: I was kindly asked to see this 64-year-old man for evaluation of possible upper airway obstruction due to angioedema. The patient apparently suffered a reaction to IV meropenem and subsequently had cardiac arrest, which necessitated CPR and intubation. The patient has clinically improved and there was concern over possible upper airway obstruction due to reaction from the IV antibiotics. PAST MEDICAL HISTORY: Reviewed in detail in chart and is pertinent for morbid obesity. PAST SURGICAL HISTORY: Noncontributory. PHYSICAL EXAMINATION: On examination, the external auditory canals and tympanic membranes are unremarkable bilaterally. He has a mild nasal septal deviation to the left. The mucosa within the nose is unremarkable. Oral cavity examination shows minimal candidiasis on the dorsum of the tongue. There is no elevation of the floor of the mouth. There is no edema of the soft palate. The posterior pharyngeal wall could not be visualized due to the obesity and presence of the endotracheal tube. There is no palpable cervical adenopathy on fiberoptic diagnostic laryngoscopy. Examination is limited due to the presence of the endotracheal tube, but there is no significant edema of the endolarynx seen on exam or the hypopharynx on examination. ASSESSMENT: No evidence of clinically significant angioedema of the larynx. PLAN: Cleared for extubation from otolaryngology standpoint. However, due to the presence of endotracheal tube still may be possible. There is significant airway collapse, which could not be visualized due to the presence of the tube and re- intubation may be required if he has significant upper airway obstruction after extubation. MD WILBERTO Be/RICH /[id number]
== END 2019-12-20 ==
LOC: WCC 14:06
PROVIDERS: ATTEND Internal Medicine Infectious Disease
DX: E11.621 Type 2 diabetes mellitus with foot ulcer (principal); E11.65 Type 2 diabetes mellitus with hyperglycemia; L97.411 Non-pressure chronic ulcer of right heel and midfoot limited to breakdown of skin; I87.2 Venous insufficiency (chronic) (peripheral); I89.0 Lymphedema, not elsewhere classified; B35.1 Tinea unguium; L84 Corns and callosities; M10.9 Gout, unspecified; I10 Essential (primary) hypertension; E66.01 Morbid (severe) obesity due to excess calories; E78.00 Pure hypercholesterolemia, unspecified; Z01.810 Encounter for preprocedural cardiovascular examination; Z01.811 Encounter for preprocedural respiratory examination

== ENCOUNTER → 2021-03-10 | Outpatient (CLI) | payer MEDICARE, OTHER ==
[~2021-03-10] MED LIST changes: +FEOSOL45 MG PO; -NYSTATIN 100,000 UNITS/GM CRM 30GM TUBE ONE
== END ==
LOC: US 08:35
PROVIDERS: ATTEND Urology
DX: N20.0 Calculus of kidney (principal)
CPT/HCPCS: 74018; 76770